=== PATIENT | male | born 1955 | race Caucasian/White ===

== ENCOUNTER 2017-11-26 14:08 | Outpatient (CLI) | payer BC | END 2017-11-26 14:09 | disposition home or self-care (01) | LOC: LAB.F 14:08 | PROVIDERS: ATTEND Family Medicine | DX: R73.01 Impaired fasting glucose (principal); I10 Essential (primary) hypertension; E03.9 Hypothyroidism, unspecified; E87.6 Hypokalemia; Z12.5 Encounter for screening for malignant neoplasm of prostate ==

== ENCOUNTER 2017-11-27 08:00 | Outpatient (CLI) | payer BC ==
[2017-11-27 17:35] LABS: BILIRUBIN,URINE NEGATIVE (NEGATIVE); GLUCOSE, URINE (UA) NEGATIVE (NEGATIVE); KETONES,URINE (UA) NEGATIVE (NEGATIVE); LEUKOCYTE ESTERASE, URINE NEGATIVE (NEGATIVE); NITRITE,URINE NEGATIVE (NEGATIVE); OCCULT BLOOD,URINE NEGATIVE (NEGATIVE); PROTEIN,URINE NEGATIVE (NEGATIVE); UROBILINOGEN,URINE 0.2 (NORMAL) E.U./dL (NORMAL)
[2017-11-27 17:44] LABS: BACTERIA,URINE Rare /HPF (None Seen); CLARITY,URINE CLEAR (CLEAR); RBC,URINE 0-5 /HPF (0-5); SQUAMOUS EPITHELIAL CELL,UR RARE Squamous (<= Few)
[2017-11-27 18:08] LABS: ALBUMIN 4.2 g/dL (3.2-5.5); ALBUMIN/GLOBULIN RATIO 1.4 (1.0-2.2); ALKALINE PHOSPHATASE 45 IU/L (42-121); ALT ALANINE AMINOTRANSFERASE 29 IU/L (10-60); AST ASPARTATE AMINOTRANSFERASE 26 IU/L (10-42); BUN - BLOOD UREA NITROGEN 23 mg/dL (6-20); CALCIUM 9.4 mg/dL (8.5-10.3); CARBON DIOXIDE - CO2 22 mmol/L (21-32); CHLORIDE 102 mmol/L (101-111); CHOL/HDL RATIO 4.5 (<5.0); CHOLESTEROL 180 mg/dL; GFR - MDRD 75 (>89); GLUCOSE 105 mg/dL (70-100); HDL CHOLESTEROL 40 mg/dL; LDL CHOLESTEROL,CALCULATED 127 mg/dL; LDL/HDL RATIO 3.2 (<3.6); SODIUM 136 mmol/L (135-145); TOTAL PROTEIN 7.2 g/dL (6.7-8.2); VLDL CHOLESTEROL 13 mg/dL
[2017-11-27 18:13] LABS: HB2 TOTAL 18.5 g/dL; HEMOGLOBIN A1C 0.68 g/dL; HEMOGLOBIN A1C % 5.5 % (4.6-6.2)
== END 2017-11-27 08:01 | disposition home or self-care (01) ==
LOC: LAB.F 08:00
PROVIDERS: ATTEND Family Medicine
DX: R73.01 Impaired fasting glucose (principal); I10 Essential (primary) hypertension; E03.9 Hypothyroidism, unspecified; E87.6 Hypokalemia; Z12.5 Encounter for screening for malignant neoplasm of prostate
CPT/HCPCS: 36415; 80053; 80061; 81001; 83036; 83721; 84153

== ENCOUNTER 2017-12-10 07:43 | Day surgery (SDC) | payer BC ==
[2017-12-10] MEDS ORDERED: LACTATED RINGERS 1,000 ML IV ONE (07:51)
[2017-12-10] MEDS ORDERED: MIDAZOLAM 2 MG/2 ML VIAL IVP ONE (09:32)
[2017-12-10] MEDS ORDERED: fentaNYL 100 MCG/2 ML VIAL IVP ONE (09:32)
[2017-12-10 10:03] VITALS: BP 136/82
== END 2017-12-10 07:44 | disposition home or self-care (01) ==
LOC: SDS 07:43
PROVIDERS: ATTEND Surgery
PROC: 0DJD8ZZ Inspection of Lower Intestinal Tract, Via Natural or Artificial Opening Endoscopic (ICD-10-PCS; principal; 2017-12-10 09:00)
DX: Z12.11 Encounter for screening for malignant neoplasm of colon (principal); Z86.010 Personal history of colon polyps; I10 Essential (primary) hypertension; Z79.82 Long term (current) use of aspirin
CPT/HCPCS: 45378; J7120

== ENCOUNTER 2018-02-28 08:04 | Observation (INO) | payer BC ==
[~2018-02-28 08:04] MED LIST: BUPIVACAINE 0.5%-EPI 1:200000 PF 30 ML VIAL ONE
[2018-02-28] MEDS ORDERED: LACTATED RINGERS 1,000 ML IV ONE ×2 (08:31→12:33)
[2018-02-28] MEDS ORDERED: ceFAZolin 2 GM/50 ML 2 GM/50 ML BAG IV ONE (08:49)
[2018-02-28] MEDS ORDERED: BUPIVACAINE 0.5%-EPI 1:200000 PF 30 ML VIAL SUBQ ONE ×2 (11:13)
[2018-02-28] MEDS ORDERED: MIDAZOLAM 2 MG/2 ML VIAL IVP ONE (11:19)
[2018-02-28] MEDS ORDERED: PROPOFOL 200 MG/20 ML VIAL IVP ONE (11:19)
[2018-02-28] MEDS ORDERED: DEXAMETHASONE 4 MG/ML VIAL IVP ONE (11:19)
[2018-02-28] MEDS ORDERED: ONDANSETRON 4 MG/2 ML VIAL IVP ONE (11:19)
[2018-02-28] MEDS ORDERED: ROCURONIUM 50 MG/5 ML VIAL IVP ONE (11:19)
[2018-02-28] MEDS ORDERED: KETOROLAC 30 MG/ML VIAL IVP ONE (11:19)
[2018-02-28] MEDS ORDERED: fentaNYL 250 MCG/5 ML VIAL IVP ONE (11:19)
[2018-02-28] MEDS ORDERED: HYDROmorphone 0.5 MG/0.5 ML SYRINGE IVP PRN (14:26)
[2018-02-28] MEDS ORDERED: ONDANSETRON 4 MG/2 ML VIAL IVP PRN (14:26)
[2018-02-28] MEDS ORDERED: SODIUM CHLORIDE FLUSH 0.9% 10 ML SYRINGE IVP PRN (14:26)
[2018-02-28] MEDS ORDERED: HYDROcod/ACETAM 5/325 MG TABLET PO PRN (15:42)
[2018-02-28] MEDS: SODIUM CHLORIDE 0.9% 1,000 ML IV SCH (16:11)
[2018-02-28] MEDS: ACETAMINOPHEN 1,000 MG/100 ML 100 ML IV SCH ×2 (16:12→22:25)
[2018-02-28] MEDS: SODIUM CHLORIDE FLUSH 0.9% 10 ML SYRINGE IVP SCH (16:18)
[2018-02-28] MEDS: KETOROLAC 30 MG/ML VIAL IVP PRN (17:11)
[2018-02-28] MEDS ORDERED: HYDROmorphone 1 MG/ML CARPUJECT IVP PRN (18:03)
[2018-02-28] MEDS: FAMOTIDINE 20 MG/50 ML 50 ML IV SCH (20:26)
[2018-03-01] MEDS: SODIUM CHLORIDE 0.9% 1,000 ML IV SCH (03:22)
[2018-03-01] MEDS: ACETAMINOPHEN 1,000 MG/100 ML 100 ML IV SCH (03:25)
[2018-03-01] MEDS: SODIUM CHLORIDE FLUSH 0.9% 10 ML SYRINGE IVP SCH ×2 (03:43→08:48)
[2018-03-01] MEDS: KETOROLAC 30 MG/ML VIAL IVP PRN (03:55)
[2018-03-01] MEDS: FAMOTIDINE 20 MG/50 ML 50 ML IV SCH (08:46)
[2018-03-01] MEDS ORDERED: LISINOPRIL 5 MG TABLET PO SCH (09:00)
--- NOTE | 2018-03-01 10:24 | Discharge Plan ---
Discharge Plan Disposition: Home, Self Care Condition: Good Prescriptions: HYDROcod/ACETAM 325 [[place] 5325] 1 - 2 tab PO Q4HR PRN #30 tablet PRN Reason: Pain Diet: Regular Activity Restrictions: no lifting over 15 lbs Shower Restrictions: No Driving Restrictions: Yes (No while using narcotic pain medication) Weight Bearing: Full Weight Additional Instructions or Follow Up instructions: Abdominal binder when up No Smoking: If you smoke, Please STOP! Call for help. Follow-up with: Elpidio Son MD [Primary Care Provider] - Bartolome Montes MD [Provider Admit Priv/Credential] - 2 Weeks
--- NOTE | 2018-03-07 01:45 | PROVIDER PROGRESS NOTE ---
Subjective - General Admit Date: 02/28/18 - Review of Systems Gastrointestinal: positive: Abdominal pain (Abdominal pain now improved with Buckeye working adequately. No c/o nausea or vomiting.), Flatus Objective - Physical Exam Respiratory: positive: No respiratory distress Cardiovascular: positive: Regular rate & rhythm Abdomen: positive: Other (incision intact covered with dermabond. No signficiant abdominal tenderness) Impression/Plan - Problem List Problem List: s/p laparoscopic repair of ventral incisional hernia POD#1. Doing much better today. Overnight needed IV pain medication with oral Buckeye now providing adequate pain relief. He is now walking very well without too much abdominal pain. He is tolerating liquids. -Abdominal binder -advance diet -D/c Home
--- NOTE | 2018-03-07 06:58 | OPERATIVE REPORT ---
DATE OF SERVICE: 02/28/2018 Physician: Bartolome Montes MD PREOPERATIVE DIAGNOSIS: Ventral incisional hernia. POSTOPERATIVE DIAGNOSIS: Ventral incisional hernia. OPERATION PERFORMED: Laparoscopic repair of ventral incisional hernia. OPERATING SURGEON: Bartolome Montes MD ANESTHESIA: General. INDICATIONS FOR SURGERY: Patient is a 62-year-old male who underwent a laparoscopic right hemicolectomy for dysplastic polyp approximately 2.5 years ago. He had noticed swelling being present in the area of the previous incision recently. On physical exam, he has a reducible ventral incisional hernia. FINDINGS AT SURGERY: Patient had a ventral incisional hernia in the midline of his abdominal wall. This hernia measured 10 x 11 cm. A 20 x 25 piece of Parietex mesh was placed intra-abdominally after trimming it to appropriate size. The midline abdominal fascia had been approximated using running 0 Prolene sutures. The mesh had covered the preclosure fascial defect by at least 5 cm circumferentially around the edge. PROCEDURE: After informed consent was obtained, the patient was taken to the operating room, placed in supine position. General endotracheal anesthesia was administered. The patient's abdomen was then prepped and draped in usual sterile fashion. An incision was then made in the left upper quadrant. A 5 mm Optiview trocar was then inserted through the incision, through the fascia, and into the abdominal cavity under direct vision. The abdomen was then insufflated. Looking inside, no injuries were noted. A second 5 mm port was placed in the left lower quadrant and a 12 mm port placed through the most lateral portion of the left abdominal wall. Attention turned to the hernia defect. Measuring the fascial defect, it was approximately 10 x 11 cm. The wound was then approximated in the midline using a running #0 Prolene suture after introducing it into the abdominal cavity. A third 5 mm port was placed through the right lateral wall. The mesh had been trimmed to appropriate size to have at least 5 cm overlap over the prefascial wound closure having actually a greater than 5 cm overlap. Stay sutures in all 4 corners were then placed through the mesh using 0 PDS sutures. A marking stitch in the center of the mesh had also been placed using 3-0 Vicryl suture to ensure orientation of the mesh once it was placed intra-abdominally. The mesh was then rolled up and placed intra-abdominally. A small incision was then made in the center of the hernia defect and a suture passer was placed through this incision, through the hernia sac, and into abdominal cavity and under direct vision. The 3-0 Vicryl suture placed in the center of the mesh was then grasped and lifted up through the wound. Next, 4-quadrant incisions were then made in the skin at the edges of the mesh where the 0 Prolene sutures would be pulled through the abdominal wall. Using the suture passer, the sutures were then grasped and lifted through the abdominal wall and up through the skin. These sutures were then tied and buried down in the subcutaneous tissue. This pulled the mesh against the anterior abdominal wall. A double crown suture technique using SecureStrap was then done to secure the mesh further to the anterior abdominal wall. The 12 mm port in the left flank was then closed using 0 Vicryl suture using the suture passer to ensure adequate closure of the fascia. The rest of the 5 mm ports were then removed, and no bleeding was noted at the port sites, with the abdomen then being desufflated. The skin incisions were closed using 4-0 Monocryl subcuticular stitches. Dermabond was then applied. The patient was then awakened, extubated, and taken from the operating room in stable condition. SPECIMENS: None. COMPLICATIONS: None. CONDITION OF THE PATIENT AT THE END OF THE PROCEDURE: Stable. CLASSIFICATION WOUND: Clean. ESTIMATED BLOOD LOSS: Less than 25 mL. TD: 03/07/2018 01:48 MTDD
== END 2018-03-01 11:45 | disposition home or self-care (01) ==
LOC: SDS 08:04 → OBS 14:26 → SDS 03-01 11:45 → OBS 03-01 11:45
PROVIDERS: ADMIT Surgery; ATTEND Surgery
PROC: 0WUF4JZ Supplement Abdominal Wall with Synthetic Substitute, Percutaneous Endoscopic Approach (ICD-10-PCS; principal; 2018-02-28 09:15)
DX: K43.2 Incisional hernia without obstruction or gangrene (principal); I10 Essential (primary) hypertension; Z90.49 Acquired absence of other specified parts of digestive tract; Z86.010 Personal history of colon polyps; Z79.82 Long term (current) use of aspirin; Z87.891 Personal history of nicotine dependence
CPT/HCPCS: 49654; A9270; J0131; J0690; J3010; J7120

== ENCOUNTER 2018-06-09 12:09 | Outpatient (CLI) | payer MEDICARE, OTHER ==
[2018-06-09 18:09] LABS: HB2 TOTAL 18.4 g/dL; HEMOGLOBIN A1C 0.71 g/dL; HEMOGLOBIN A1C % 5.7 % (4.6-6.2)
[2018-06-09 18:15] LABS: ALBUMIN 4.2 g/dL (3.2-5.5); ALBUMIN/GLOBULIN RATIO 1.3 (1.0-2.2); ALKALINE PHOSPHATASE 62 IU/L (42-121); ALT ALANINE AMINOTRANSFERASE 37 IU/L (10-60); AST ASPARTATE AMINOTRANSFERASE 35 IU/L (10-42); BILIRUBIN,TOTAL 1.3 mg/dL (0.2-1.0); BUN - BLOOD UREA NITROGEN 27 mg/dL (6-20); CALCIUM 9.2 mg/dL (8.5-10.3); CARBON DIOXIDE - CO2 24 mmol/L (21-32); CHLORIDE 109 mmol/L (101-111); CHOL/HDL RATIO 4.8 (<5.0); CHOLESTEROL 205 mg/dL; CREATININE 0.9 mg/dL (0.6-1.2); GFR - MDRD 85 (>89); GLUCOSE 109 mg/dL (70-100); HDL CHOLESTEROL 43 mg/dL; LDL CHOLESTEROL,CALCULATED 147 mg/dL; LDL/HDL RATIO 3.4 (<3.6); SODIUM 141 mmol/L (135-145); TOTAL PROTEIN 7.5 g/dL (6.7-8.2); VLDL CHOLESTEROL 15 mg/dL
== END 2018-06-09 12:10 ==
LOC: LAB.S 12:09
PROVIDERS: ATTEND Family Medicine
DX: R73.01 Impaired fasting glucose (principal); I10 Essential (primary) hypertension; E03.9 Hypothyroidism, unspecified; E87.6 Hypokalemia
CPT/HCPCS: 36415; 80053; 80061; 83036; 83721

== ENCOUNTER 2019-05-01 12:51 | Outpatient (CLI) | payer MEDICARE, OTHER ==
[2019-05-01 18:55] LABS: ALBUMIN 3.8 g/dL (3.2-5.5); ALKALINE PHOSPHATASE 54 IU/L (42-121); ALT ALANINE AMINOTRANSFERASE 32 IU/L (10-60); AST ASPARTATE AMINOTRANSFERASE 25 IU/L (10-42); BUN - BLOOD UREA NITROGEN 29 mg/dL (6-20); CALCIUM 9.3 mg/dL (8.5-10.3); CARBON DIOXIDE - CO2 21 mmol/L (21-32); CHLORIDE 108 mmol/L (101-111); CHOL/HDL RATIO 4.7 (<5.0); CHOLESTEROL 191 mg/dL; CREATININE 0.8 mg/dL (0.6-1.2); GFR - MDRD 97 (>89); GLUCOSE 112 mg/dL (70-100); HDL CHOLESTEROL 41 mg/dL; LDL CHOLESTEROL,CALCULATED 137 mg/dL; LDL/HDL RATIO 3.3 (<3.6); SODIUM 142 mmol/L (135-145); TOTAL PROTEIN 7.8 g/dL (6.7-8.2); VLDL CHOLESTEROL 13 mg/dL
[2019-05-01 20:03] LABS: HEMOGLOBIN A1C 0.63 g/dL; HEMOGLOBIN A1C % 5.5 % (4.6-6.2)
== END 2019-05-01 12:52 | disposition home or self-care (01) ==
LOC: LAB.S 12:51
PROVIDERS: ATTEND Internal Medicine
DX: I10 Essential (primary) hypertension (principal); R73.01 Impaired fasting glucose; Z12.5 Encounter for screening for malignant neoplasm of prostate
CPT/HCPCS: 36415; 80053; 80061; 83036; G0103; 83721; 84153

== ENCOUNTER 2020-06-17 11:23 | Outpatient (CLI) | payer MEDICARE, OTHER ==
--- NOTE | 2020-06-17 16:00 | XRAY Report ---
PROCEDURE: Hip w/Pelvis 1V RT INDICATIONS: PAIN IN RIGHT HIP TECHNIQUE: AP pelvis with lateral view(s) of the bilateral hip(s). COMPARISON: None. FINDINGS: Bones: No fractures or dislocations. Prior right total hip arthroplasty with mild to moderate adjac ent heterotopic ossification in the soft tissues lateral to the hip joint. Note is made of a radioluc ency measuring 1.5 cm in transverse dimension and approximately 1 cm craniocaudad above the lateral t hird of the acetabular arthroplastic component Pelvic ring appears intact. No suspicious bony lesion s. Soft tissues: The visualized bowel gas pattern is normal. No suspicious soft tissue calcifications. IMPRESSION: Unexpected finding of a indistinctly marginated radiolucency in the osseous aspect of th e acetabular recess above the lateral third of the right hip arthroplasty acetabular component. Addit ional note is made of a region of heterotopic ossification, triangular, lateral to the femoral head c omponent of the arthroplasty. If infection is clinically suspected 3 phase bone scan may be warranted through this area. Reviewed by: Oswaldo Dukes MD on 06/17/2020 3:59 PM PDT Approved by: Oswaldo Dukes MD on 06/17/2020 3:59 PM PDT Station ID: [id number]
[2020-06-17 16:03] LABS: ALBUMIN 2.9 g/dL (3.2-5.5); ALKALINE PHOSPHATASE 63 IU/L (42-121); ALT ALANINE AMINOTRANSFERASE 37 IU/L (10-60); AST ASPARTATE AMINOTRANSFERASE 26 IU/L (10-42); BILIRUBIN,TOTAL 0.8 mg/dL (0.2-1.0); BUN - BLOOD UREA NITROGEN 29 mg/dL (6-20); CALCIUM 9.7 mg/dL (8.5-10.3); CARBON DIOXIDE - CO2 25 mmol/L (21-32); CHLORIDE 100 mmol/L (101-111); CHOL/HDL RATIO 4.1 (<5.0); CHOLESTEROL 120 mg/dL; GLUCOSE 119 mg/dL (70-100); HDL CHOLESTEROL 29 mg/dL; SODIUM 130 mmol/L (135-145)
[2020-06-17 16:36] LABS: TOTAL PROTEIN 11.5 g/dL (6.7-8.2)
[2020-06-17 16:37] LABS: ALBUMIN/GLOBULIN RATIO 0.3 (1.0-2.2); LDL CHOLESTEROL,CALCULATED 82 mg/dL; LDL/HDL RATIO 2.8 (<3.6); VLDL CHOLESTEROL 9 mg/dL
== END 2020-06-17 11:24 | disposition home or self-care (01) ==
LOC: LAB.S 11:23 → DI.S 11:24
PROVIDERS: ATTEND Internal Medicine
DX: R93.6 Abnormal findings on diagnostic imaging of limbs (principal); I10 Essential (primary) hypertension; R73.01 Impaired fasting glucose; Z12.5 Encounter for screening for malignant neoplasm of prostate
CPT/HCPCS: 36415; 73501; 80053; 80061; 83036; G0103; 83721; 84153

== ENCOUNTER 2020-06-29 11:34 | Outpatient (CLI) | payer MEDICARE, OTHER ==
[2020-06-29 16:27] LABS: CALCIUM 10.1 mg/dL (8.5-10.3)
[2020-07-01 14:26] LABS: ABNORMAL PROTEIN BAND 1 6.4 g/dL (NONE DETECTED); ALBUMIN 3.9 g/dL (3.8-4.8); ALPHA 1 GLOBULIN 0.3 g/dL (0.2-0.3); ALPHA 2 GLOBULIN 0.7 g/dL (0.5-0.9); BETA 1 GLOBULIN 0.4 g/dL (0.4-0.6); BETA 2 GLOBULIN 0.3 g/dL (0.2-0.5); GAMMA GLOBULIN 6.8 g/dL (0.8-1.7)
== END 2020-06-29 11:35 | disposition home or self-care (01) ==
LOC: LAB.S 11:34
PROVIDERS: ATTEND Internal Medicine
DX: Z00.01 Encounter for general adult medical examination with abnormal findings (principal)
CPT/HCPCS: 36415; 80048; 84155; 84165; 84300; 85651

== ENCOUNTER 2020-08-17 20:25 | Outpatient (CLI) | payer MEDICARE, OTHER | END 2020-08-17 20:26 | disposition critical access hospital (66) | LOC: EMS 20:25 | PROVIDERS: ATTEND Surgery | DX: R55 Syncope and collapse (principal) | CPT/HCPCS: A0425; A0427 ==

== ENCOUNTER 2020-08-17 20:58 | Inpatient (IN) | payer MEDICARE, OTHER ==
[2020-08-17] MEDS ORDERED: METOPROLOL 5 MG/5 ML VIAL IVP STA (21:25)
[2020-08-17 21:27] LABS: BASOPHILS % (AUTO) 0.4 %; EOSINOPHILS # (AUTO) 0.1 10^3/uL (0.0-0.7); EOSINOPHILS % (AUTO) 1.1 %; HGB - HEMOGLOBIN 10.7 g/dL (14.0-18.0); LYMPHOCYTES # (AUTO) 1.2 10^3/uL (1.5-3.5); LYMPHOCYTES % (AUTO) 22.8 %; MEAN CORPUSCULAR HEMOGLOBIN 34.5 pg (27.0-31.0); MEAN CORPUSCULAR HGB CONC 33.4 g/dL (32.0-36.0); MEAN CORPUSCULAR VOLUME 103.2 fL (80.0-94.0); MEAN PLATELET VOLUME 9.3 fL (7.4-11.4); MONOCYTES # (AUTO) 0.6 10^3/uL (0.0-1.0); MONOCYTES % (AUTO) 11.8 %; NEUTROPHILS # (AUTO) 3.5 10^3/uL (1.5-6.6); NEUTROPHILS % (AUTO) 63.5 %; PLT - PLATELET COUNT 169 10^3/uL (130-450); RED CELL DISTRIBUTION WIDTH 14.5 % (12.0-15.0); WHITE BLOOD COUNT 5.4 x10^3/uL (4.8-10.8)
[2020-08-17] MEDS ORDERED: HYDROmorphone 1 MG/ML CARPUJECT IVP STA (21:29)
[2020-08-17] MEDS ORDERED: KETOROLAC 15 MG/ML VIAL IVP STA (21:29)
--- NOTE | 2020-08-17 21:33 | ED Physician Documentation ---
PD HPI SYNCOPE - Stated complaint Stated Complaint: NEAR SYNCOPE - Chief complaint Chief Complaint: Cardiac - History obtained from History obtained from: Patient, Family, EMS - History of Present Illness Witnessed: Witnessed Timing - onset: How many hours ago (abrupt onset of feeling general weakness, feeling heart fast, and near syncope. 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 EMS called and noted the pt in SVT rate 150 with wide complex. It converted to sinus tachy on its own. BP was good throughout. Pt feeling better once heart rate slowed.) Preceding symptoms: Palpitations, Abdominal pain. No: Chest pain Contributing factors: Other (He has had 1 week of progressive leg edema as well as shortness of breath and dyspnea on exertion. He thought it was related to his myeloma. No history of CHF/heart disease.). No: Recent med change, Decreased PO intake Injury occurred: No: Fell, Head injury Similar symptoms before: Has not had sx before Recently seen: Clinic (Hemo/Onc with Dx of multiple myeloma.) Review of Systems Constitutional: reports: Fatigue. denies: Fever, Chills Nose: denies: Rhinorrhea / runny nose, Congestion Throat: denies: Sore throat Cardiac: reports: Pedal edema (for 7-10 days gradual onset). denies: Palpitations Respiratory: reports: Dyspnea. denies: Cough, Wheezing GI: reports: Abdominal Pain, Constipation (since Saturday (4 days)). denies: Nausea, Vomiting : denies: Dysuria, Frequency Skin: denies: Rash Musculoskeletal: reports: Back pain (for couple months, Dx with multiple myeloma confirmed last week; getting chemo at [facility] starting next week.) Neurologic: reports: Generalized weakness (for the past week, worsening, and abrupt worse this evening with near syncope.). denies: Altered mental status, Headache Psychiatric: reports: Anxiety. denies: Insomnia Endocrine: reports: Weight loss Immunocompromised: denies: Immunocompromised PD PAST MEDICAL HISTORY - Past Medical History Past Medical History: Yes Cardiovascular: Hypertension Respiratory: None Endocrine/Autoimmune: None GI: Colon polyps : None HEENT: None Psych: None Musculoskeletal: None Derm: None Other Past Medical History: multiple myeloma - Past Surgical History Past Surgical History: Yes General: Bowel surgery, Colonoscopy, Other Ortho: Hip replacement - Present Medications Home Medications: Ambulatory Orders Medication Instructions Recorded Confirmed lisinopriL [Zestril] 10 mg PO DAILY 11/26/13 08/12/20 Flaxseed Oil 1,000 mg PO DAILY 12/24/17 08/12/20 Glucosamine HCl 3 tab PO DAILY 12/24/17 08/12/20 Multivitamin [Multiple Vitamins] 2 each PO DAILY 12/24/17 08/12/20 Niacin 500 mg PO DAILY 12/24/17 08/12/20 Eleele-3/Dha/Epa/Fish Oil [Fish Oil 1,360 mg PO DAILY 12/24/17 08/12/20 Conc 1,000 mg Softgel] Prosta Fit 3 cap PO DAILY 07/15/20 08/12/20 Acyclovir [Zovirax] 400 mg PO BID 08/12/20 08/12/20 Morphine Sulfate [Ms Contin] 15 mg ORAL BID 08/12/20 08/12/20 Ondansetron [Ondansetron Odt] 8 mg PO Q8HR PRN 08/12/20 08/12/20 dexAMETHasone [Dexamethasone] 4 mg PO ONCE 08/12/20 08/12/20 oxyCODONE [Roxicodone] 5 mg PO Q4-6H PRN 08/12/20 08/12/20 - Allergies Allergies/Adverse Reactions: Allergies Allergy/AdvReac Type Severity Reaction Status Date / Time morphine AdvReac Anxiety Verified 08/17/20 21:09 - Social History Does the pt smoke?: No Smoking Status: Never smoker Does the pt drink ETOH?: Yes Does the pt have substance abuse?: No - Immunizations Immunizations are current?: No Immunizations: TDAP >10years/unknown PD ED PE NORMAL - Vitals Vital signs reviewed: Yes - General General: Alert and oriented X 3, Well developed/nourished - Neck Neck: Supple, no meningeal sign, No adenopathy, Other (mild JVD at 45 degrees) - Cardiac Cardiac: No murmur. No: RRR (tachycardic) - Respiratory Respiratory: No: Clear bilaterally (Bilateral crackles a third of the way up on both sides. No accessory muscle use.) - Abdomen Abdomen: Soft, Non tender, Non distended. No: Normal bowel sounds (decreased) - Male Male : Deferred - Rectal Rectal: Deferred - Back Back: No CVA TTP - Derm Derm: Normal color, Warm and dry - Neuro Neuro: Alert and oriented X 3, No motor deficit Eye Opening: Spontaneous Motor: Obeys Commands Verbal: Oriented GCS Score: 15 - Psych Psych: No: Normal affect (somewhat anxious) Results - Vitals Vitals: Vital Signs - 24 hr 08/17/20 08/17/20 08/17/20 21:05 21:10 21:16 Temperature 37.1 C 37.1 C 37.1 C Heart Rate 106 H 106 H 105 H Respiratory 18 18 18 Rate Blood Pressure 188/116 H 118/115 H 182/91 H O2 Saturation 95 97 97 08/17/20 08/17/20 08/17/20 21:41 21:42 21:43 Temperature 37.1 C 37.1 C 37.1 C Heart Rate 108 H 89 86 Respiratory 16 16 15 Rate Blood Pressure 188/92 H 185/88 H 157/84 H O2 Saturation 95 94 100 08/17/20 08/17/20 08/17/20 21:49 21:55 22:03 Temperature 37.1 C 37.1 C 37.1 C Heart Rate 86 89 87 Respiratory 12 15 15 Rate Blood Pressure 147/85 H 149/82 H 131/71 H O2 Saturation 97 94 95 08/17/20 08/17/20 22:20 22:30 Temperature 37.1 C 37.1 C Heart Rate 88 94 Respiratory 20 15 Rate Blood Pressure 161/84 H 160/82 H O2 Saturation 96 97 Oxygen O2 Source Room air - EKG (time done) 21:00 Rate: Rate (enter#) (106) Rhythm: Sinus tachycardia [place]: Normal Intervals: RBBB Ischemia: ST depression (likely c/w BBB), Non specific changes. No: ST elevation c/w ischemia - Labs Labs: Laboratory Tests 08/17/20 08/17/20 08/17/20 21:20 21:20 21:20 WBC 5.4 RBC 3.10 L Hgb 10.7 L Hct 32.0 L MCV 103.2 H MCH 34.5 H MCHC 33.4 RDW 14.5 Plt Count 169 MPV 9.3 Neut # (Auto) 3.5 Lymph # (Auto) 1.2 L [place] # (Auto) 0.6 Eos # (Auto) 0.1 Baso # (Auto) 0.0 Absolute Nucleated RBC 0.00 Nucleated RBC % 0.0 Sodium 136 Potassium 2.9 L Chloride 102 Carbon Dioxide 26 Anion Gap 8.0 BUN 29 H Creatinine 1.2 Estimated GFR (MDRD) 60 L Glucose 121 H Calcium 10.7 H Phosphorus Magnesium Total Bilirubin 0.9 AST 22 ALT 29 Alkaline Phosphatase 69 Troponin I High Sens 19.6 B-Natriuretic Peptide Total Protein 10.7 H Albumin 2.3 L Globulin 8.4 H Albumin/Globulin Ratio 0.3 L Lipase 24 08/17/20 08/17/20 21:20 21:20 WBC RBC Hgb Hct MCV MCH MCHC RDW Plt Count MPV Neut # (Auto) Lymph # (Auto) [place] # (Auto) Eos # (Auto) Baso # (Auto) Absolute Nucleated RBC Nucleated RBC % Sodium Potassium Chloride Carbon Dioxide Anion Gap BUN Creatinine Estimated GFR (MDRD) Glucose Calcium Phosphorus 2.6 Magnesium 1.9 Total Bilirubin AST ALT Alkaline Phosphatase Troponin I High Sens B-Natriuretic Peptide 166 H Total Protein Albumin Globulin Albumin/Globulin Ratio Lipase - Rads (name of study) chest xray Radiology: Prelim report reviewed (Diffuse vascular congestion consistent with CHF), See rad report PD MEDICAL DECISION MAKING - ED course Complexity details: reviewed results (His chest x-ray is more concordant with his exam of fine wet sounds. BNP is not much elevated but I think is not reliable as much as clinical.), considered differential (He has been having exertional dyspnea as well as leg edema. There are some crackles heard at the bases. He does seem to have new CHF. Unclear whether rhythm related and concordant with the SVT/possible A. fib this evening or whether primarily cardiogenic with heart failure. An echo may be approp), d/w patient Departure - Departure Disposition: ED Place in Observation Clinical Impression: SVT (supraventricular tachycardia), Hypokalemia, Near syncope, New onset of congestive heart failure Dyspnea Qualifiers: Dyspnea type: dyspnea on exertion Qualified Code(s): R06.00 - Dyspnea, unspecified Condition: Stable Record reviewed to determine appropriate education?: Yes
[2020-08-17 21:38] LABS: ALBUMIN 2.3 g/dL (3.2-5.5); ALBUMIN/GLOBULIN RATIO 0.3 (1.0-2.2); BILIRUBIN,TOTAL 0.9 mg/dL (0.2-1.0); CALCIUM 10.7 mg/dL (8.5-10.3); CREATININE 1.2 mg/dL (0.6-1.2); TOTAL PROTEIN 10.7 g/dL (6.7-8.2)
[2020-08-17 21:46] LABS: MAGNESIUM 1.9 mg/dL (1.7-2.8); PHOSPHORUS 2.6 mg/dL (2.5-4.6)
[2020-08-17] MEDS ORDERED: POTASSIUM CHLORIDE 20 MEQ TABLET PO STA (21:51)
[2020-08-17] MEDS ORDERED: POTASSIUM CHLOR 10 MEQ/100 ML 10 MEQ/100 ML BAG IV ONE ×2 (21:51→22:47)
--- NOTE | 2020-08-17 22:01 | XRAY Report ---
PROCEDURE: Chest 1 View X-Ray INDICATIONS: chest pain TECHNIQUE: One view of the chest was acquired. COMPARISON: 04/30/2015 FINDINGS: Surgical changes and devices: None. Lungs and pleura: Diffuse interstitial prominence with patchy bibasilar opacities more pronounced on the right. No focal consolidations. No definite pleural effusion. No pneumothorax. Suggestion of mild vascular congestion. Mediastinum: Cardiomediastinal contours remain stable. Heart size is normal. Bones and chest wall: New lytic lesions noted throughout the right humerus with the largest partially imaged in the mid shaft of the right humerus. Remainder of the visualized osseous structures appear unremarkable. Overlying soft tissues appear unremarkable. IMPRESSION: 1. Diffuse interstitial prominence with patchy bibasilar opacities and suggestion of vascular congest ion. Findings may represent pulmonary edema/CHF. Infectious/inflammatory process not excluded if clin ically appropriate. No focal consolidations. 2. Incompletely imaged lucencies involving the right humerus. These are likely new compared to previo us chest radiograph dated 04/30/2015. Intraosseous lesion versus osseous metastatic disease not exclud ed. Clinical correlation recommended. Reviewed by: Marcos Bautista MD on 08/17/2020 10:00 PM PDT Approved by: Marcos Bautista MD on 08/17/2020 10:00 PM PDT Station ID: [id number]
[2020-08-17] MEDS ORDERED: FUROSEMIDE 20 MG/2 ML VIAL IVP STA (22:06)
[2020-08-17] MEDS ORDERED: ONDANSETRON ODT 4 MG TABLET TL PRN (22:45)
[2020-08-17] MEDS ORDERED: ONDANSETRON 4 MG/2 ML VIAL IVP PRN (22:45)
[2020-08-17] MEDS ORDERED: oxyCODONE 5 MG TABLET PO PRN (22:45)
--- NOTE | 2020-08-17 22:56 | HISTORY & PHYSICAL EXAMINATION ---
Chief Complaint - Chief Complaint Chief Complaint: near syncope History of Present Illness - Admitted From Admitted From:: home via EMS - History Obtained From Records Reviewed: [facility] History obtained from: Dr. lezama Exam Limitations: none - History of Present Illness HPI Comment/Other: 65-year-old white male who was recently diagnosed with multiple myeloma. He just had a confirmatory biopsy last week, and is to start therapy next week. He has diffuse joint pain, bone pain. Fatigue. Anorexia. He has been feeling increasing sylvia pain and inability to do ADLs in the last week. Denies chest pain, palpitations, but is having leg edema.He would lay down on the floor, elevate his legs, and go to sleep and the physician. When he would wake up, his legs would be skinny. But then when he stood up for too long the legs to get edematous again. When I press him about shortness of breath he states he really was not short of breath. He is just tired, and his legs and pelvis hurt so much from the bony erosions he cannot stand for too long. He has been spending many hours in a chair or laying down now for the last few months. He denies cough, fever, chills, chest congestion. The last time he stood up to do a project was in April. Today had sudden onset of palpitations, with lightheadedness and dizziness. When I explained to him that it was described that he almost passed out he denies it. He said at no time did he feel like he was losing his concentration or consciousness. He said that he just could not get off the toilet. No matter how hard he tried his legs would not support him. No chest pain. No diaphoresis. No jaw pain, left arm pain. And as such he came to the emergency room. Via EMS. When EMS arrived at the scene, he was in a wide complex tachycardia felt to be SVT. He said that he tried to get up off the toilet by himself, with him standing by, but all he did was lurch to one side, and not the toilet roll reyes off the wall. By the time they got him on the gurney he had already converted back to sinus on his own. In the emergency room he was evaluated by Dr. Lezama where heart rate was 86. Temperature was 37.1. Blood pressure 147/85. Respirations 12 and is 97% on r oom air. For the time is been in the emergency room he has been oxygenating adequately, and has been mildly hypertensive. His physical exam is crackles. But no respiratory distress. Chest x-ray does not show congestive heart failure. Potassium is 2.9. Troponin was normal. Calcium is elevated at 10.7. BNP is 166. EKG is unremarkable. The patient is now placed in observation for gentle diuresis, and echocardiogram in the morning. And telemetry. History - Past Medical History Cardiovascular: reports: Hypertension (Admission for uncontrolled hypertension after right hemicolectomy) Respiratory: reports: None Endocrine/Autoimmune: reports: None GI: reports: Colon polyps (Screening colonoscopy 12/04. Large colon polyp seen. Underwent right hemicolectomy December 30, 2013.) : reports: None HEENT: reports: None Psych: reports: None Musculoskeletal: reports: None Derm: reports: None MRSA Hx?: No Other Past Medical History: multiple myeloma: Diffuse musculoskeletal pain with sharp bony pain developed over the last few months. Was seen by his primary care provider and evaluation showed him to have a paraproteinemia. Final diagnosis is that of multiple myeloma. Initial consultation with oncology was July 15. Tentative date for starting therapy with bortezomib, lenalidomide, and dexamethasone is August 29. Zoledronic acid will be 4 mg monthly and he supposed to have seen a dentist. - Past Surgical History General: reports: Bowel surgery, Colonoscopy (11/2013 with resection 12/2013. Follow-up colonoscopy September 2014, November 2017.), Other (Inguinal hernia repair, incarcerated ventral hernia repair 02/2018) Ortho: reports: Hip replacement - Family & Social History Family History Comment/Other: Mom had leukemia And age 65. Dad of com plications of DM and heart disease in his 80s. 6 Siblings with 1 having prostate cancer and one having severe diabetes. No children Living arrangement: At home Living Situation: With spouse/s.o. Social History Notes: Former smoker who quit smoking 1983. Started in 1968 and smoked 1 pack/day. Alcohol use is 1-2 times a week. No recreational substance abuse since April 2013 Use of cannabis. In the 1960s and 1970s he tried cocaine, LSD, street methamphetamines, peyote. He never tried heroin. He said that drug really scared him. He was born in [facility]. [place] he joined [employer]. Was in the [employer] for 4 years. 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 Retired from [employer]. He had a girlfriend for many years. They have been together for decades. He her in June 2016. - Substance History Use: Uses substance without health or social issues: NONE Abuse: Recurrent use of substance despite neg consequences: NONE Dependence: Experiences withdrawal or developed tolerances: NONE - POLST Patient has POLST: No POLST Status: Full Code Meds/Allgy - Home Medications Home Medications: Ambulatory Orders Medication Instructions Recorded Confirmed lisinopriL [Zestril] 10 mg PO DAILY 11/26/13 08/17/20 Flaxseed Oil 1,000 mg PO DAILY 12/24/17 08/17/20 Glucosamine HCl 3 tab PO DAILY 12/24/17 08/17/20 Multivitamin [Multiple Vitamins] 2 each PO DAILY 12/24/17 08/17/20 Niacin 500 mg PO DAILY 12/24/17 08/17/20 [place]-3/Dha/Epa/Fish Oil [Fish Oil 1,360 mg PO DAILY 12/24/17 08/17/20 Conc 1,000 mg Softgel] Prosta Fit 3 cap PO DAILY 07/15/20 08/12/20 Acyclovir [Zovirax] 400 mg PO BID 08/12/20 08/17/20 Morphine Sulfate [Ms Contin] 15 mg ORAL BID 08/12/20 08/17/20 Ondansetron [Ondansetron Odt] 8 mg PO Q8HR PRN 08/12/20 08/17/20 dexAMETHasone [Dexamethasone] 4 mg PO ONCE 08/12/20 08/12/20 oxyCODONE [Roxicodone] 5 mg PO Q4-6H PRN 08/12/20 08/17/20 - Allergies Allergies/Adverse Reactions: Allergies Allergy/AdvReac Type Severity Reaction Status Date / Time morphine AdvReac Anxiety Verified 08/17/20 21:09 Review of Systems - Constitutional Constitutional: reports: Fatigue, Weakness, Poor appetite, Weight loss. denies: Fever, Chills, Malaise, Diaphoresis, Night sweats - Eyes Eyes: reports: Spots in vision (He has developed white spots as a ramona in the periphery of his vision when he stands up. It streaks to the sides. Central vision is maintained.). denies: Pain, Irritation, Amaurosis, Blurred vision - Ears, Nose & Throat Ears, Nose & Throat: denies: Ear pain, Hearing loss, Hearing aids, Vertigo, Nasal pain, Nasal discharge, Nasal congestion, Sore throat, Hoarseness - Cardiovascular Cariovascular: reports: Irregular heart rate, Palpitations, Edema, Lightheadedness, Decr. exercise tolerance. denies: Chest pain, Syncope, Exertional dyspnea - Respiratory Respiratory: denies: Cough, Sputum production, Wheezing, Snoring, Orthopnea, SOB at rest, SOB with exertion - Gastrointestinal Gastrointestinal: reports: Abdominal pain (Mild generalized epigastric discomfort when he was sitting on the toilet. That is resolved.), Constipation (For the last 4 to 5 days.). denies: Abdominal distention, Diarrhea, Rectal bleeding, Black stools, Bloody stools, Nausea, Vomiting - Genitourinary Genitourinary: reports: Frequency, Nocturia (Over the summer has been getting worse.). denies: Dysuria, Urgency, Hematuria, Incontinence - Musculoskeletal Musculoskeletal: reports: Stiffness, Other (The bones of his legs, pelvis, rib cage, and spine just hurt.) - Integumentary Integumentary: denies: Rash, Pruritis, Lesions, Dryness - Neurological Neurological: reports: General weakness, Dizziness. denies: Focal weakness, Headache, Memory problems, Pre-existing deficit - Psychiatric Psychiatric: denies: Depression, Anxiety, Suicidal, Hallucinations - Endocrine Endocrine: denies: Polyuria, Polydypsia, Polyphagia - Hematologic/Lymphatic Hematologic/Lymphatic: reports: Anemia. denies: Bruising, Petechiae Prior Level of Functionality: Up until April of this year he was completely independent with activities of daily living. 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 Last thing he was able to stand up and do was a dog house this summer in April. He has been spending more more time sitting down or laying down because of the diffuse bony pain. He does not use a cane or walker. This last week he has become so weak he could not get off the toilet. He would like to speak to social work about getting a list to do private duty hires. Exam - Vital Signs Reviewed Vital Signs: Yes Vital Signs: Vital Signs x48h Temp Pulse Resp BP Pulse Ox 08/17/20 22:52 37.0 C 88 15 143/80 H 95 08/17/20 22:30 37.1 C 94 15 160/82 H 97 08/17/20 22:20 37.1 C 88 20 161/84 H 96 08/17/20 22:03 37.1 C 87 15 131/71 H 95 08/17/20 21:55 37.1 C 89 15 149/82 H 94 08/17/20 21:49 37.1 C 86 12 147/85 H 97 08/17/20 21:43 37.1 C 86 15 157/84 H 100 08/17/20 21:42 37.1 C 89 16 185/88 H 94 08/17/20 21:41 37.1 C 108 H 16 188/92 H 95 08/17/20 21:16 37.1 C 105 H 18 182/91 H 97 08/17/20 21:10 37.1 C 106 H 18 118/115 H 97 08/17/20 21:05 37.1 C 106 H 18 188/116 H 95 - Physical Exam General Appearance: positive: No acute distress, Alert, Other (5 foot 7, 97 kg male with a deep zamora) Eyes Bilateral: positive: PERRL, EOMI ENT: positive: Pharynx nml, No signs of dehydration Neck: positive: No JVD. negative: Stiff neck Respiratory: positive: No respiratory distress. negative: Wheezes, Rales, Rhonchi Cardiovascular: positive: Regular rate & rhythm. negative: Systolic murmur, Gallop/S4, Friction rub Peripheral Pulses: positive: 1+ Abdomen: positive: Non-tender, No organomegaly, Nml bowel sounds, No distention Skin: positive: Warm, Dry Extremities: positive: Full ROM, Pedal edema (3+ right foot, 2+ right leg. 2+ left foot and leg Both feet have sausage toes). negative: Lynette's sign/cords Neurologic/Psychiatric: positive: Oriented x3, CN's nml (2-12). negative: Motor nml (Moderate generalized weakness that has improved unable to stand and weight-bear) Conclusion/Plan - Problem List (1) Near syncope Conclusion/Plan: In a gentleman who has a new diagnosis of hematologic malignancy, and new arrhythmia, and new congestive heart failure.He states that he really did not almost pass out. He just says that he could not get off the toilet. Plan: Observation status Treatment of the stated above problems (2) SVT (supraventricular tachycardia) Conclusion/Plan: In a patient with a malignancy. Supplement electrolytes, check magnesium, check echo. Make sure he is not having DVT with venous Dopplers. (3) New onset of congestive heart failure Conclusion/Plan: Seen on chest x-ray, mild complaints of shortness of breath. No MO. Having bursts of SVT. Plan: Gentle diuresis Review echocardiogram and depending on ejection fraction he may or may not need diuresis alone or diuresis with beta-umm and continued ENDER inhibitor. (4) Hypokalemia Conclusion/Plan: Supplemented in ER. Recheck level in the morning. (5) Multiple myeloma Conclusion/Plan: To start treatment August 29. Qualifiers: Multiple myeloma remission status: not in remission Qualified Code(s): C90.00 - Multiple myeloma not having achieved remission (6) HTN (hypertension) Conclusion/Plan: Check orthostatics because of near syncope. Resume lisinopril 10 mg daily. Depending on echocardiogram result, he may need a beta-umm as well. Qualifiers: Hypertension type: essential hypertension Qualified Code(s): I10 - Essential (primary) hypertension - Lab Results Lab results reviewed: Yes Fish Bones: 08/17/20 21:20 08/17/20 21:20 - Diagnostic Imaging Results Diagnostic Imaging Results: positive: Final report reviewed Diagnostic Imaging Results Comments: Chest x-ray with diffuse interstitial prominence with patchy bibasilar opacities and suggestive of vascular congestion. Incompletely imaged lucencies involving the right humerus. New compared to previous chest x-ray April 30, 2015. Intraosseous lesion versus osseous metastatic disease not excluded. - EKG Results EKG Interpreted Independently: No EKG Comparison: No prior EKG EKG Findings: Sinus tachycardia with a right bundle branch block. Core Measures - Anticipated LOS I expect patient to be DC'd or transferred within 96 hours.: Yes - DVT/VTE - Prophylaxis VTE/DVT Device ordered at admit?: Yes
--- NOTE | 2020-08-18 02:24 | ADVANCE CARE PLANNING NOTE ---
Advance Care Planning - Planning Encounter Date: 08/18/20 Time: 01:25 Purpose: Establish goals of care and resuscitation status Parties in Attendance: Hospitalist and patient Decisional Capacity of the Patient: Alert, oriented, good memory with a lucid historical narrative - Diagnosis for Encounter (1) Multiple myeloma Qualifiers: Multiple myeloma remission status: not in remission Qualified Code(s): C90.00 - Multiple myeloma not having achieved remission - Encounter Subjective/Patient's Story: The patient is a pleasant 65-year-old male from [facility]. [place]. He has 6 siblings in [place]. Both parents are . He left [place] after he joined the [employer] and was stationed in [place]. He left it so much he never left. From the [employer] he went into [employer], was laid off for 4 years and then back at [employer]. 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 He has been in the same relationship with the same partner for a very long time now. They made it legal in June 2016. They have no children. Because he is a "tool kelby" he loves to fix things. That is what he left to do more than anything in life besides being outdoors. He and his recently bought a house. The first time they have her own house in January 2020. He is "honey do list" became quadruple the list they had when they were renting. That is when he first realized something was wrong. By March or April he was developing such terrible leg pain in his bones that he went to see his physician. A paraprotein area in his urine was identified as multiple myeloma by April. He was seen by oncology in June. He is now due for his first therapy August 31. He is lost a lot of ground between March and now. He is developed such pain that he spends most of his time sitting, or lying down. The last time he did anything that he enjoyed doing was in April when he built a dog house. But standing on his feet is just too painful on the long bones of his legs, and the pelvis. In the last week he has developed pedal edema that goes away if he lays on his back and raises his feet. He has been getting weaker and weaker and everything takes so much more effort now. When trying to get off the toilet today, his legs would not support him. He was brought here with the idea that he had near syncope but he is adamant that he did not have near syncope. He just could not get off the toilet. And he almost fell down. He has a deep face in Jerald Lito. He states that he does not know what the answers are, and he does not know what Lito has and plan for him, and that he does need to know that. He will accept what ever happens to him. He starting to realize that the possibility of is much sooner than anticipated. While he does not want to , he is willing to accept that event if that is his time. If he needed to be resuscitated with CPR or intubation he would like that done. But he also recognizes that if he were to be resuscitated but that he was still significantly disabled, to let him go. He has not really discussed this with his . He feels that she is taking this illness much harder than he is. He is afraid that it will get to the point where he is status post resuscitation, intubated, in an ICU with pressors and she will let them go. He says he would not want resuscitation to go that far. Today was also a wake-up call with regards to need for help. His cannot help him get up if he falls. He feels like they do have the finances to hire somebody short-term to help him until he can get therapy. He is hoping that the therapy for the multiple myeloma will took away some of his bony pain. He is on long-acting morphine twice a day. He is asking us to make sure that we keep him on that. Otherwise the pain is unbearable. Objective/Medical Story: 65-year-old white male who was recently diagnosed with multiple myeloma. He just had a confirmatory biopsy last week, and is to start therapy next week. He has diffuse joint pain, bone pain. Fatigue. Anorexia. He has been feeling increasing sylvia pain and inability to do ADLs in the last week. Denies chest pain, palpitations, but is having leg edema.He would lay down on the floor, elevate his legs, and go to sleep and the physician. When he would wake up, his legs would be skinny. But then when he stood up for too long the legs to get edematous again. When I press him about shortness of breath he states he really was not short of breath. He is just tired, and his legs and pelvis hurt so much from the bony erosions he cannot stand for too long. He has been spending many hours in a chair or laying down now for the last few months. He denies cough, fever, chills, chest congestion. The last time he stood up to do a project was in April. Today had sudden onset of palpitations, with lightheadedness and dizziness. When I explained to him that it was described that he almost passed out he denies it. He said at no time did he feel like he was losing his concentration or consciousness. He said that he just could not get off the toilet. No matter how hard he tried his legs would not support him. No chest pain. No diaphoresis. No jaw pain, left arm pain. And as such he came to the emergency room. Via EMS. When EMS arrived at the scene, he was in a wide complex tachycardia felt to be SVT. He said that he tried to get up off the toilet by himself, with him standing by, but all he did was lurch to one side, and not the toilet roll reyes off the wall. By the time they got him on the gurney he had already converted back to sinus on his own. In the emergency room he was evaluated by Dr. Pederson where heart rate was 86. Temperature was 37.1. Blood pressure 147/85. Respirations 12 and is 97% on room air. For the time is been in the emergency room he has been oxygenating adequately, and has been mildly hypertensive. His physical exam is crackles. But no respiratory distress. Chest x-ray does not show congestive heart failure. Potassium is 2.9. Troponin was normal. Calcium is elevated at 10.7. BNP is 166. EKG is unremarkable. The patient is now placed in observation for gentle diuresis, and echocardiogram in the morning. And telemetry. History - Past Medical History Cardiovascular: reports: Hypertension (Admission for uncontrolled hypertension after right hemicolectomy) Respiratory: reports: None Endocrine/Autoimmune: reports: None GI: reports: Colon polyps (Screening colonoscopy 12/04. Large colon polyp seen. Underwent right hemicolectomy December 30, 2013.) : reports: None HEENT: reports: None Psych: reports: None Musculoskeletal: reports: None Derm: reports: None MRSA Hx?: No Other Past Medical History: multiple myeloma: Diffuse musculoskeletal pain with sharp bony pain developed over the last few months. Was seen by his primary care provider and evaluation showed him to have a paraproteinemia. Final diagnosis is that of multiple myeloma. Initial consultation with oncology was July 15. Tentative date for starting therapy with bortezomib, lenalidomide, and dexamethasone is August 29. Zoledronic acid will be 4 mg monthly and he supposed to have seen a dentist. Goals of Care: 1. To start therapy for multiple myeloma with oncology supervision 2. To have therapy decreased his bony lesions, decrease his pain, and have a longer life because of it 3. To continue to work and his brand-new home, tinkering, "fixing things" Plan: 1. Full CODE STATUS. This is to be done initially. If, however, resuscitation does not bring him to his baseline of being awake, alert, and able to take care of himself, he wants us to let him go. 2. Sit down and have his discussion with his . 3. Get a list from social work of private duty hire 4. To get through this admission so that he can start therapy as soon as possible Code Status: Attempt Resuscitation Time spent on advance care plannin
[2020-08-18] MEDS: SODIUM CHLORIDE FLUSH 0.9% 10 ML SYRINGE IVP SCH ×3 (02:45→15:56)
[2020-08-18] MEDS: SODIUM CHLORIDE FLUSH 0.9% 10 ML SYRINGE IVP PRN ×2 (02:45→06:17)
[2020-08-18 04:54] LABS: CALCIUM 10.7 mg/dL (8.5-10.3); CREATININE 1.3 mg/dL (0.6-1.2)
[2020-08-18] MEDS: POTASSIUM CHLOR 10 MEQ/100 ML 10 MEQ/100 ML BAG IV SCH ×6 (06:16→13:27)
--- NOTE | 2020-08-18 07:23 | Ultrasound Report ---
PROCEDURE: Duplex Ext Veins Bilateral INDICATIONS: MERI GARNER TECHNIQUE: Real-time imaging, as well as color and pulse Doppler interrogation, were performed of the deep veins of both legs from the inguinal ligament to the popliteal fossa. COMPARISON: None FINDINGS: The common femoral, superficial femoral and popliteal veins are normally compressible, and free of intraluminal thrombus. Color and pulse Doppler demonstrate normal phasic intravascular flow in the common femoral, superficial femoral and popliteal veins. There is normal augmentation respon se to distal compression maneuver. Nonocclusive thrombus noted in one of the right calf veins possibl y peroneal or posterior tibial vein. IMPRESSION: Nonocclusive thrombus of indeterminate age involving right calf vein. No thrombus identified in the r ight common femoral vein, right superficial femoral vein or right popliteal vein. Reviewed by: Abby Rock MD, PhD on 08/18/2020 7:21 AM PDT Approved by: Abby Rock MD, PhD on 08/18/2020 7:21 AM PDT Station ID: [id number]
[2020-08-18] MEDS ORDERED: POTASSIUM CHLORIDE 20 MEQ TABLET PO ONE (08:41)
--- NOTE | 2020-08-18 08:45 | PHARMACY PROGRESS NOTE ---
- Best Possible Medication History Admit Date and Time: 08/17/20 6436 Processed by: Nursing Medication History completed: Yes As the person ultimately responsible for medication therapy, providers are able to order a medication from an existing home medication list in [facility] via the "Reconcile Routine" prior to Confirmation of that medication by clerical support specialist. Such practice is discouraged except when the physician, in their clinical judgment, deems that a medical need exists for a medication without regard to previous use.
[2020-08-18] MEDS ORDERED: ENOXAPARIN 100 MG/ML SYRINGE SUBQ SCH (09:00)
[2020-08-18] MEDS ORDERED: ENOXAPARIN 40 MG/0.4 ML SYRINGE SUBQ SCH (09:00)
[2020-08-18 09:10] LABS: INR 1.3 (0.8-1.2); PT - PROTHROMBIN TIME 14.7 secs (9.9-12.6)
[2020-08-18] MEDS ORDERED: IOVERSOL 320 100 ML VIAL IVP ONE ×2 (09:35→19:25)
--- NOTE | 2020-08-18 10:27 | CT Report ---
PROCEDURE: ANGIO CHEST W INDICATIONS: SOB, if PE CONTRAST: IV CONTRAST: Optiray 320 ml: 80 PO CONTRAST: *NO PO CONTRAST TECHNIQUE: After the administration of intravenous contrast, 2 mm thick sections acquired from the pulmonary api johanna to the posterior costophrenic angles. 3-dimensional maximum intensity projection (MIP) coronal a nd sagittal reformats were then acquired through the thorax. For radiation dose reduction, the follow ing was used: automated exposure control, adjustment of mA and/or kV according to patient size. COMPARISON: Correlation is made with chest radiograph, 08/17/2020. FINDINGS: Image quality: Excellent. Pulmonary arteries: Pulmonary arteries are normal in size, and demonstrate no intraluminal filling d efects to suggest central pulmonary embolism. Lungs and pleura: Nonenhancing dependent consolidation is seen, which is attributed to atelectasis. T here is a trace left-sided pleural effusion. No pneumothorax. Emphysematous changes are seen, includ ing subpleural bleb formation. Central and peripheral airways are patent. Mediastinum: Heart size is normal, without pericardial effusion. Moderate coronary artery calcificat ion is seen. No mediastinal or hilar adenopathy. Thoracic aorta is normal in caliber and enhancement . Esophagus is normal in caliber, without hiatal hernia. Bones and chest wall: No suspicious bony lesions. The bones demonstrate multiple small lytic appeari ng foci. Larger lytic foci can be seen involving the posterior elements of T10 and T11, with prominen t erosion of the T11 spinous process, as on series 8 image 282 and on series 11 image 26. Focal T12-L 1 degenerative change is seen, with moderate to severe disc space narrowing and associated prominent endplate irregularity and sclerosis. Degenerative changes are seen throughout, with multiple levels o f anterior bridging endplate osteophytes. A 30% compression deformity can be seen of T11, without fra nk, acute features. No posterior displacement of fracture fragments can be seen. The thyroid is rebeca l. No axillary or supraclavicular adenopathy. Abdomen: Visualized upper abdominal solid organs appear normal in the early arterial phase of enhanc ement. IMPRESSION: Negative for pulmonary embolism. Diffuse lytic bony lesions are seen which are worst at T11. Differential diagnosis includes diffuse m etastatic disease and multiple myeloma. A T11 compression deformity is seen, which may represent a pathologic fracture. Trace left-sided pleural effusion. Emphysematous changes are seen, including subpleural bleb formation. Incidental note is made of: Moderate coronary artery calcification Mild dependent atelectasis Reviewed by: Rosalio Sorto MD on 08/18/2020 9:26 AM [facility] Approved by: Rosalio Sorto MD on 08/18/2020 9:26 AM [facility] Station ID: [id number]
[2020-08-18] MEDS ORDERED: BISACODYL 10 MG SUPP PR ONE (10:33)
[2020-08-18] MEDS: MORPHINE ER 15 MG TABLET PO SCH ×2 (10:39→21:01)
[2020-08-18] MEDS ORDERED: METOPROLOL 5 MG/5 ML VIAL IVP PRN (10:44)
[2020-08-18] MEDS: METOPROLOL TARTRATE 25 MG TABLET PO SCH ×2 (11:24→21:01)
[2020-08-18] MEDS: polyethylene glycoL 3350 17 GM PACKET PO SCH (13:45)
[2020-08-18] MEDS: DOCUSATE SODIUM 250 MG CAPSULE PO SCH (13:45)
[2020-08-18] MEDS: SENNA 8.6 MG TABLET PO SCH (13:45)
--- NOTE | 2020-08-18 16:06 | PROVIDER PROGRESS NOTE ---
Assessment/Plan - Problem List (1) Near syncope Assessment/Plan: Patient has no near syncope in the hospital. Patient denied chest pain, denied shortness of breathing, dizziness, lightheaded. Patient is echo show normal EF no aortic stenosis, mild abnormal right heart pressure. New EKG patient showed atrial fibrillation with RVR at HR around 140, pt is Asymptomatic. CTA show patient has no PE with diffuse lytic bony lesion as pt already know, which pt had diagnosis of MM per pt's report. After the patient was treated with intravenous metoprolol and p.o. metoprolol, patient's heart rate was controlled. ECHO show mild abnormal right heart pressure, Patient is on lisinopril and metoprolol. (2)afib with RVR pt new EKG show patient has atrial fibrillation with RVR. After the patient was treated with intravenous metoprolol and p.o. metoprolol, patient's heart rate was controlled. Patient also was given Eliquis, patient was also found to have nonocclusive thrombus of indeterminate age involved right calf vein. (3) nonocclusive thrombus of indeterminate age in right calf vein Ultrasound show nonocclusive thrombus of indeterminate age involved right calf vein. CTA show no PE. Patient has no respiratory distress. Patient has 95% sats on room air. Plus patient had atrial fibrillation, we will start with the patient Eliquis. Patient also has a new diagnosis of multiple myeloma, Patient is in the risk to make clots (4) Hypokalemia Conclusion/Plan: resolved (5) Multiple myeloma Conclusion/Plan: To start treatment August 29. (6) HTN (hypertension) Conclusion/Plan: stable. We will continue lisinopril and metoprolol - Current Meds Current Meds: Current Medications Generic Name Dose Route Start Last Admin Trade Name Freq PRN Reason Stop Dose Admin Docusate Sodium 250 - 500 mg 08/18/20 11:00 08/18/20 13:45 Colace 250mg Capsule PO 250 mg DAILY QUINTIN Administration Metoprolol Tartrate 5 mg 08/18/20 10:44 08/18/20 10:55 Lopressor Inj IVP 5 mg Q6H PRN Administration Tachycardia Metoprolol Tartrate 25 mg 08/18/20 12:00 08/18/20 11:24 Lopressor PO 25 mg BID QUINTIN Administration Morphine Sulfate 15 mg 08/18/20 10:00 08/18/20 10:39 PO 15 mg BID QUINTIN Administration Polyethylene Glycol 17 gm 08/18/20 11:00 08/18/20 13:45 Miralax PO 17 gm DAILY QUINTIN Administration Senna 8.6 - 17.2 mg 08/18/20 11:00 08/18/20 13:45 Senokot PO 8.6 mg DAILY QUINTIN Administration Sodium Chloride 10 ml 08/17/20 22:45 08/18/20 06:17 Normal Saline Flush 0.9% IVP 10 ml PRN PRN Administration NEEDED PER PROVIDER ORDERS Sodium Chloride 10 ml 08/18/20 01:00 08/18/20 15:56 Normal Saline Flush 0.9% IVP 10 ml 0100,0900,1700 QUINTIN Administration - Lab Result Fish Bone Diagrams: 08/17/20 21:20 08/18/20 13:45 - Additional Planning My Orders: My Active Orders 08/18/20 Social Work Consult [CONS] Routine DRUG SCREEN MEDICAL (MUDS) [URIN] Urgent 08/18/20 08:46 Echo Transthoracic Complete [ECHO] Stat 08/18/20 09:01 oxyCODONE [Roxicodone] 10 mg PO Q6H PRN 08/18/20 10:00 Morphine ER 15 mg PO BID 08/18/20 10:44 Metoprolol Inj [Lopressor Inj] 5 mg IVP Q6H PRN 08/18/20 11:00 Docusate Sodium 250Mg Capsule [Colace 250Mg Capsule] 250 - 500 mg PO DAILY Senna [Senokot] 8.6 - 17.2 mg PO DAILY polyethylene glycoL 3350 [Miralax] 17 gm PO DAILY 08/18/20 11:19 Nutrition Consult [CONS] Routine 08/18/20 12:00 Metoprolol Tartrate [Lopressor] 25 mg PO BID 08/18/20 21:00 Apixaban [Eliquis] 5 mg PO BID 08/19/20 Evaluate and Treat OT [OT] Routine Evaluate and Treat PT [PT] Routine 08/19/20 05:00 BMP - BASIC METABOLIC PANEL [CHEM] DAILYLAB CBC - COMP BLD CT W/AUTO DIFF [HEME] DAILYLAB 08/20/20 05:00 BMP - BASIC METABOLIC PANEL [CHEM] DAILYLAB CBC - COMP BLD CT W/AUTO DIFF [HEME] DAILYLAB 11/01/20 05:00 BMP - BASIC METABOLIC PANEL [CHEM] DAILYLAB CBC - COMP BLD CT W/AUTO DIFF [HEME] DAILYLAB 08/22/20 05:00 BMP - BASIC METABOLIC PANEL [CHEM] DAILYLAB CBC - COMP BLD CT W/AUTO DIFF [HEME] DAILYLAB Subjective - Subjective Patient Reports: Feeling Better Objective Vital Signs: Vital Signs - 24 hr 08/17/20 08/17/20 08/17/20 21:05 21:10 21:16 Temperature 37.1 C 37.1 C 37.1 C Heart Rate 106 H 106 H 105 H Heart Rate [ Brachial] Respiratory 18 18 18 Rate Blood Pressure 188/116 H 118/115 H 182/91 H Blood Pressure [Left Brachial artery] Blood Pressure [Right] O2 Saturation 95 97 97 08/17/20 08/17/20 08/17/20 21:41 21:42 21:43 Temperature 37.1 C 37.1 C 37.1 C Heart Rate 108 H 89 86 Heart Rate [ Brachial] Respiratory 16 16 15 Rate Blood Pressure 188/92 H 185/88 H 157/84 H Blood Pressure [Left Brachial artery] Blood Pressure [Right] O2 Saturation 95 94 100 08/17/20 08/17/20 08/17/20 21:49 21:55 22:03 Temperature 37.1 C 37.1 C 37.1 C Heart Rate 86 89 87 Heart Rate [ Brachial] Respiratory 12 15 15 Rate Blood Pressure 147/85 H 149/82 H 131/71 H Blood Pressure [Left Brachial artery] Blood Pressure [Right] O2 Saturation 97 94 95 08/17/20 08/17/20 08/17/20 22:20 22:30 22:52 Temperature 37.1 C 37.1 C 37.0 C Heart Rate 88 94 88 Heart Rate [ Brachial] Respiratory 20 15 15 Rate Blood Pressure 161/84 H 160/82 H 143/80 H Blood Pressure [Left Brachial artery] Blood Pressure [Right] O2 Saturation 96 97 95 08/17/20 08/18/20 08/18/20 23:00 00:00 07:27 Temperature 37 C 37 C 36.6 C Heart Rate 87 Heart Rate [ 87 91 Brachial] Respiratory 15 20 20 Rate Blood Pressure 141/79 H Blood Pressure 159/78 H 121/56 L [Left Brachial artery] Blood Pressure [Right] O2 Saturation 96 96 92 08/18/20 08/18/20 08/18/20 10:55 11:03 11:08 Temperature Heart Rate Heart Rate [ 111 H 115 H Brachial] Respiratory Rate Blood Pressure 126/60 Blood Pressure 121/75 133/91 H [Left Brachial artery] Blood Pressure [Right] O2 Saturation 08/18/20 08/18/20 08/18/20 11:15 11:24 11:25 Temperature Heart Rate Heart Rate [ 140 H Brachial] Respiratory Rate Blood Pressure 130/82 H 130/92 H Blood Pressure 130/92 H [Left Brachial artery] Blood Pressure [Right] O2 Saturation 08/18/20 08/18/20 08/18/20 11:48 13:00 15:54 Temperature 37 C Heart Rate Heart Rate [ 106 H 83 81 Brachial] Respiratory 19 19 Rate Blood Pressure Blood Pressure 117/68 137/84 H [Left Brachial artery] Blood Pressure 119/66 [Right] O2 Saturation 92 95 Oxygen O2 Source Room air I&O (Last 24 Hrs): Intake and Output Totals x24h 08/16/20 08/17/20 08/18/20 23:59 23:59 23:59 Intake Total 200 1371.667 Output Total 1275 1500 Balance -1075 -128.333 General: Alert, Oriented x3, No acute distress HEENT: Atraumatic Neck: Supple Lymphatic: no adenopathy Neuro: Alert, Non Focal, Oriented Times 3 Cardiovascular: Normal S1, Normal S2 Respiratory: Chest non-tender, No respiratory distress Abdomen: Normal bowel sounds, Soft, No tenderness Extremities: Normal pulses - Results Results: Laboratory Results WBC 5.4 x10^3/uL (4.8-10.8) 08/17/20 21:20 RBC 3.10 10^6/uL (4.70-6.10) L 08/17/20 21:20 Hgb 10.7 g/dL (14.0-18.0) L 08/17/20 21:20 Hct 32.0 % (42.0-52.0) L 08/17/20 21:20 MCV 103.2 fL (80.0-94.0) H 08/17/20 21:20 MCH 34.5 pg (27.0-31.0) H 08/17/20 21:20 MCHC 33.4 g/dL (32.0-36.0) 08/17/20 21:20 RDW 14.5 % (12.0-15.0) 08/17/20 21:20 Plt Count 169 10^3/uL (130-450) 08/17/20 21:20 MPV 9.3 fL (7.4-11.4) 08/17/20 21:20 Neut # (Auto) 3.5 10^3/uL (1.5-6.6) 08/17/20 21:20 Lymph # (Auto) 1.2 10^3/uL (1.5-3.5) L 08/17/20 21:20 Prentiss # (Auto) 0.6 10^3/uL (0.0-1.0) 08/17/20 21:20 Eos # (Auto) 0.1 10^3/uL (0.0-0.7) 08/17/20 21:20 Baso # (Auto) 0.0 10^3/uL (0.0-0.1) 08/17/20 21:20 Absolute Nucleated RBC 0.00 x10^3/uL 08/17/20 21:20 Nucleated RBC % 0.0 /100WBC 08/17/20 21:20 PT 14.7 secs (9.9-12.6) H 08/18/20 04:20 INR 1.3 (0.8-1.2) H 08/18/20 04:20 D-Dimer > 1050.0 ng/mL (200.0-255.0) H 08/18/20 04:20 Sodium 138 mmol/L (135-145) 08/18/20 04:20 Potassium 3.7 mmol/L (3.5-5.0) 08/18/20 13:45 Chloride 104 mmol/L (101-111) 08/18/20 04:20 Carbon Dioxide 27 mmol/L (21-32) 08/18/20 04:20 Anion Gap 7.0 (6-13) 08/18/20 04:20 BUN 29 mg/dL (6-20) H 08/18/20 04:20 Creatinine 1.3 mg/dL (0.6-1.2) H 08/18/20 04:20 Estimated GFR (MDRD) 55 (>89) L 08/18/20 04:20 Glucose 109 mg/dL (70-100) H 08/18/20 04:20 Calcium 10.7 mg/dL (8.5-10.3) H 08/18/20 04:20 Phosphorus 2.6 mg/dL (2.5-4.6) 08/17/20 21:20 Magnesium 1.9 mg/dL (1.7-2.8) 08/17/20 21:20 Total Bilirubin 0.9 mg/dL (0.2-1.0) 08/17/20 21:20 AST 22 IU/L (10-42) 08/17/20 21:20 ALT 29 IU/L (10-60) 08/17/20 21:20 Alkaline Phosphatase 69 IU/L (42-121) 08/17/20 21:20 Troponin I High Sens 19.6 ng/L (2.3-19.7) 08/17/20 21:20 B-Natriuretic Peptide 216 pg/mL (5-100) H 08/18/20 04:20 Total Protein 10.7 g/dL (6.7-8.2) H 08/17/20 21:20 Albumin 2.3 g/dL (3.2-5.5) L 08/17/20 21:20 Globulin 8.4 g/dL (2.1-4.2) H 08/17/20 21:20 Albumin/Globulin Ratio 0.3 (1.0-2.2) L 08/17/20 21:20 Lipase 24 U/L (22-51) 08/17/20 21:20 Ethyl Alcohol < 5.0 mg/dL 08/18/20 11:45 - Procedures Procedures: Procedures CLOSED ENDOSCOPIC BIOPSY OF LARGE INTESTINE (11/26/13) COLONOSCOPY (09/23/14) ENDO RECTUM POLYPECTOMY (11/26/13) INSPECTION OF LOWER INTESTINAL TRACT, ENDO (12/10/17) LAPAROSCOPIC RIGHT HEMICOLECTOMY (12/29/13) SUPPLEMENT ABDOMINAL WALL WITH SYNTH SUB, PERC ENDO APPROACH (02/28/18) ABX Reporting Has patient been on IV antibiotics over the past 48 hours?: No Current Medications - Current Medications Current Medications: Active Medications Acetaminophen (Tylenol) 650 mg PO Q4HR PRN PRN Reason: Pain 1 to 4 Apixaban (Eliquis) 5 mg PO BID [facility] Docusate Sodium (Colace 250mg Capsule) 250 - 500 mg PO DAILY [facility] Last Admin: 08/18/20 13:45 Dose: 250 mg Documented by: Metoprolol Tartrate (Lopressor Inj) 5 mg IVP Q6H PRN PRN Reason: Tachycardia Last Admin: 08/18/20 10:55 Dose: 5 mg Documented by: Metoprolol Tartrate (Lopressor) 25 mg PO BID [facility] Last Admin: 08/18/20 11:24 Dose: 25 mg Documented by: Morphine Sulfate () 15 mg PO BID [facility] Last Admin: 08/18/20 10:39 Dose: 15 mg Documented by: Ondansetron HCl (Zofran Odt) 4 mg TL Q6HR PRN PRN Reason: Nausea / Vomiting Ondansetron HCl (Zofran Inj) 4 mg IVP Q6HR PRN PRN Reason: Nausea / Vomiting Oxycodone HCl (Roxicodone) 10 mg PO Q6H PRN PRN Reason: PAIN Polyethylene Glycol (Miralax) 17 gm PO DAILY [facility] Last Admin: 08/18/20 13:45 Dose: 17 gm Documented by: Senna (Senokot) 8.6 - 17.2 mg PO DAILY [facility] Last Admin: 08/18/20 13:45 Dose: 8.6 mg Documented by: Sodium Chloride (Normal Saline Flush 0.9%) 10 ml IVP PRN PRN PRN Reason: NEEDED PER PROVIDER ORDERS Last Admin: 08/18/20 06:17 Dose: 10 ml Documented by: Sodium Chloride (Normal Saline Flush 0.9%) 10 ml IVP 0100,0900,1700 [facility] Last Admin: 08/18/20 15:56 Dose: 10 ml Documented by: [email or web address] [Zestril] 10 mg PO DAILY 11/26/13 Flaxseed Oil 1,000 mg PO DAILY 12/24/17 Glucosamine HCl 3 tab PO DAILY 12/24/17 Multivitamin [Multiple Vitamins] 2 each PO DAILY 12/24/17 Niacin 500 mg PO DAILY 12/24/17 [place]-3/Dha/Epa/Fish Oil [Fish Oil Conc 1,000 mg Softgel] 1,360 mg PO DAILY 12/24/17 Acyclovir [Zovirax] 400 mg PO BID 08/12/20 Morphine Sulfate [Ms Contin] 15 mg ORAL BID 08/12/20 Ondansetron [Ondansetron Odt] 8 mg PO Q8HR PRN 08/12/20 dexAMETHasone [Dexamethasone] 4 mg PO ONCE 08/12/20 oxyCODONE [Roxicodone] 10 mg PO Q4-6H PRN 08/12/20
[2020-08-18] MEDS: APIXABAN 5 MG TABLET PO SCH (21:01)
[2020-08-19] MEDS: SODIUM CHLORIDE FLUSH 0.9% 10 ML SYRINGE IVP SCH ×3 (01:37→18:29)
[2020-08-19 05:36] LABS: BASOPHILS % (AUTO) 0.2 %; EOSINOPHILS # (AUTO) 0.1 10^3/uL (0.0-0.7); EOSINOPHILS % (AUTO) 1.9 %; HGB - HEMOGLOBIN 8.8 g/dL (14.0-18.0); LYMPHOCYTES # (AUTO) 1.2 10^3/uL (1.5-3.5); LYMPHOCYTES % (AUTO) 26.2 %; MEAN CORPUSCULAR HEMOGLOBIN 32.7 pg (27.0-31.0); MEAN CORPUSCULAR HGB CONC 31.5 g/dL (32.0-36.0); MEAN CORPUSCULAR VOLUME 103.7 fL (80.0-94.0); MEAN PLATELET VOLUME 9.2 fL (7.4-11.4); MONOCYTES # (AUTO) 0.5 10^3/uL (0.0-1.0); MONOCYTES % (AUTO) 11.2 %; NEUTROPHILS # (AUTO) 2.9 10^3/uL (1.5-6.6); NEUTROPHILS % (AUTO) 60.3 %; PLT - PLATELET COUNT 155 10^3/uL (130-450); RED BLOOD COUNT 2.69 10^6/uL (4.70-6.10); RED CELL DISTRIBUTION WIDTH 14.5 % (12.0-15.0); WHITE BLOOD COUNT 4.7 x10^3/uL (4.8-10.8)
[2020-08-19 05:45] LABS: CALCIUM 10.7 mg/dL (8.5-10.3); CREATININE 1.3 mg/dL (0.6-1.2)
[2020-08-19] MEDS ORDERED: POTASSIUM CHLORIDE 20 MEQ TABLET PO ONE ×2 (08:56→09:10)
[2020-08-19 09:33] LABS: ABSOLUTE RETICS # AUTO 0.047 10^6/uL (0.020-0.110); RED BLOOD COUNT 2.6 10^6/uL (4.70-6.10)
[2020-08-19] MEDS: APIXABAN 5 MG TABLET PO SCH ×2 (09:53→21:18)
[2020-08-19] MEDS: METOPROLOL TARTRATE 25 MG TABLET PO SCH ×2 (09:56→21:17)
[2020-08-19 09:57] LABS: MUDS CUTOFF CONCENTRATIONS CUTOFF CONC BELOW:
[2020-08-19] MEDS: DOCUSATE SODIUM 250 MG CAPSULE PO SCH (09:59)
[2020-08-19] MEDS: SENNA 8.6 MG TABLET PO SCH (09:59)
[2020-08-19 10:12] LABS: % IRON SATURATION 34 % (20-50); IRON 62 ug/dL (45-182); TOTAL IRON BINDING CAPACITY 182 ug/dL (250-450); TRANSFERRIN 130 mg/dL (180-329)
[2020-08-19 10:13] LABS: AMPHETAMINE SCREEN,URINE NEGATIVE (NEGATIVE); BENZODIAZEPINES SCREEN, URINE NEGATIVE (NEGATIVE); COCAINE SCREEN URINE NEGATIVE (NEGATIVE); METHADONE SCREEN, URINE NEGATIVE (NEGATIVE); METHAMPHETAMINES SCREEN, URINE NEGATIVE (NEGATIVE); OPIATE SCREEN, URINE POSITIVE (NEGATIVE); OXYCODONE SCREEN, URINE POSITIVE (NEGATIVE); PROPOXYPHENE SCREEN, URINE NEGATIVE (NEGATIVE); TRICYCLIC ANTIDEPRESSANT,URINE NEGATIVE (NEGATIVE)
[2020-08-19] MEDS: MORPHINE ER 15 MG TABLET PO SCH ×2 (10:49→21:17)
[2020-08-19] MEDS: polyethylene glycoL 3350 17 GM PACKET PO SCH (10:50)
[2020-08-19] MEDS ORDERED: FUROSEMIDE 20 MG/2 ML VIAL IVP SCH (12:00)
--- NOTE | 2020-08-19 17:08 | PROVIDER PROGRESS NOTE ---
Assessment/Plan - Problem List (1) Near syncope Assessment/Plan: 08/19. improved. pt feel better, and no near or syncope in hospital. his HR is controlled. Patient's suddenly feeling of palpitation, shortness of breathing, near syncope in the admission was likely caused by new onset atrial fibrillation with RVR at heart rate around 140-150. Continue metoprolol, continue Eliquis, Continue shelter monitor Patient has no near syncope in the hospital. Patient denied chest pain, denied shortness of breathing, dizziness, lightheaded. Patient is echo show normal EF no aortic stenosis, mild abnormal right heart pressure. New EKG patient showed atrial fibrillation with RVR at HR around 140, pt is Asymptomatic. CTA show patient has no PE with diffuse lytic bony lesion as pt already know, which pt had diagnosis of MM per pt's report. After the patient was treated with intravenous metoprolol and p.o. metoprolol, patient's heart rate was controlled. ECHO show mild abnormal right heart pressure, Patient is on lisinopril and metoprolol. (2)afib with RVR 08/19 improved. pt's HR is controlled by metoprolol, continue eliquis pt EKG show patient has atrial fibrillation with RVR. After the patient was treated with intravenous metoprolol and p.o. metoprolol, patient's heart rate was controlled. Patient also was given Eliquis, patient was also found to have nonocclusive thrombus of indeterminate age involved right calf vein. (3) nonocclusive thrombus of indeterminate age in right calf vein Ultrasound show nonocclusive thrombus of indeterminate age involved right calf vein. CTA show no PE. Patient has no respiratory distress. Patient has 95% sats on room air. Plus patient had atrial fibrillation, we will start with the patient Eliquis. Patient also has a new diagnosis of multiple myeloma, Patient is in the risk to make clots (4) Hypokalemia Conclusion/Plan: resolved (5) Multiple myeloma Conclusion/Plan: 1029, I went to [facility] clinic to update the patient medical condition to patient's oncologist per pt's request, pt had schedule on early next to see his onc ologist, his oncologist hope pt start his chemotherapy as soon as possible. To start treatment August 29. (6) HTN (hypertension) Conclusion/Plan: stable. We will continue lisinopril and metoprolol (7)diastolic heart failure Patient's EHCO reveal ECHO show mild abnormal right heart pressure, RVSP is 46 mmHG. pt had elevated BNP, today pt's O2 sats has drop, pt feel tired. continue lisinopril, and metoprolol, add Lasix 20mg IV bid. order CXR, is pending. continue lab and vital monitor (8)weakness order PT/OT, will evaluate and treat for pt - Current Meds Current Meds: Current Medications Generic Name Dose Route Start Last Admin Trade Name Freq PRN Reason Stop Dose Admin Apixaban 5 mg 08/18/20 21:00 08/19/20 09:53 Eliquis PO 5 mg BID QUINTIN Administration Docusate Sodium 250 - 500 mg 08/18/20 11:00 08/19/20 09:59 Colace 250mg Capsule PO 250 mg DAILY QUINTIN Administration Furosemide 20 mg 08/19/20 12:00 08/19/20 11:46 Lasix Inj 20mg Vial IVP 20 mg DAILY QUINTIN Administration Metoprolol Tartrate 5 mg 08/18/20 10:44 08/18/20 10:55 Lopressor Inj IVP 5 mg Q6H PRN Administration Tachycardia Metoprolol Tartrate 25 mg 08/18/20 12:00 08/19/20 09:56 Lopressor PO 25 mg BID QUINTIN Administration Morphine Sulfate 15 mg 08/18/20 10:00 08/19/20 10:49 PO 15 mg BID QUINTIN Administration Polyethylene Glycol 17 gm 08/18/20 11:00 08/19/20 10:50 Miralax PO 17 gm DAILY QUINTIN Administration Senna 8.6 - 17.2 mg 08/18/20 11:00 08/19/20 09:59 Senokot PO 8.6 mg DAILY QUINTIN Administration Sodium Chloride 10 ml 08/17/20 22:45 08/18/20 06:17 Normal Saline Flush 0.9% IVP 10 ml PRN PRN Administration NEEDED PER PROVIDER ORDERS Sodium Chloride 10 ml 08/18/20 01:00 08/19/20 11:46 Normal Saline Flush 0.9% IVP 10 ml 0100,0900,1700 QUINTIN Administration - Lab Result Fish Bone Diagrams: 08/19/20 05:25 08/19/20 05:25 - Additional Planning My Orders: My Active Orders 08/18/20 21:00 Apixaban [Eliquis] 5 mg PO BID 08/19/20 OCCULT BLOOD IN PAT. SINGLE [RAPID] Urgent Evaluate and Treat OT [OT] Routine Evaluate and Treat PT [PT] Routine 08/19/20 09:28 Incentive Spirometry - RT [RC] .TID 08/19/20 12:00 FUROSEMIDE INJ 20mg VIAL [LASIX INJ 20mg VIAL] 20 mg IVP DAILY 08/20/20 05:00 BMP - BASIC METABOLIC PANEL [CHEM] DAILYLAB CBC - COMP BLD CT W/AUTO DIFF [HEME] DAILYLAB 08/21/20 05:00 BMP - BASIC METABOLIC PANEL [CHEM] DAILYLAB CBC - COMP BLD CT W/AUTO DIFF [HEME] DAILYLAB 08/22/20 05:00 BMP - BASIC METABOLIC PANEL [CHEM] DAILYLAB CBC - COMP BLD CT W/AUTO DIFF [HEME] DAILYLAB Subjective - Subjective Patient Reports: Feeling Better Objective Vital Signs: Vital Signs - 24 hr 08/18/20 08/18/20 08/18/20 17:06 21:00 21:01 Temperature 37 C 37 C Heart Rate 81 Heart Rate [ Activity] Heart Rate [ 91 Brachial] Heart Rate [ Supine] Respiratory 19 18 Rate Blood Pressure 113/82 H Blood Pressure [Activity] Blood Pressure [Left Brachial artery] Blood Pressure 113/82 H [Right] Blood Pressure [Supine] O2 Saturation 95 93 08/19/20 08/19/20 08/19/20 00:42 04:50 07:39 Temperature 37.1 C 36.6 C 36.8 C Heart Rate Heart Rate [ Activity] Heart Rate [ 91 78 82 Brachial] Heart Rate [ Supine] Respiratory 18 18 19 Rate Blood Pressure Blood Pressure [Activity] Blood Pressure 153/74 H 127/66 [Left Brachial artery] Blood Pressure 144/90 H [Right] Blood Pressure [Supine] O2 Saturation 93 92 94 08/19/20 08/19/20 08/19/20 09:56 13:00 14:30 Temperature 37.1 C Heart Rate Heart Rate [ 89 Activity] Heart Rate [ 73 Brachial] Heart Rate [ 75 Supine] Respiratory 20 Rate Blood Pressure 144/90 H Blood Pressure 180/86 H [Activity] Blood Pressure [Left Brachial artery] Blood Pressure 132/59 H [Right] Blood Pressure 132/59 H [Supine] O2 Saturation 91 L 08/19/20 15:59 Temperature 37 C Heart Rate Heart Rate [ Activity] Heart Rate [ 81 Brachial] Heart Rate [ Supine] Respiratory 16 Rate Blood Pressure Blood Pressure [Activity] Blood Pressure [Left Brachial artery] Blood Pressure 121/67 [Right] Blood Pressure [Supine] O2 Saturation 91 L Oxygen O2 Source Room air I&O (Last 24 Hrs): Intake and Output Totals x24h 08/17/20 08/18/20 08/19/20 23:59 23:59 23:59 Intake Total 200 1571.667 480 Output Total 1275 2100 2125 Balance -1075 -528.338 -8265 General: Alert, Oriented x3, No acute distress HEENT: Atraumatic Neck: Supple Lymphatic: no adenopathy Neuro: Alert, Non Focal, Oriented Times 3 Cardiovascular: Regular rate, Normal S1, Normal S2 Respiratory: Chest non-tender, No respiratory distress Abdomen: Normal bowel sounds, Soft, No tenderness Extremities: Normal pulses - Results Results: Laboratory Results WBC 4.7 x10^3/uL (4.8-10.8) L 08/19/20 05:25 RBC 2.60 10^6/uL (4.70-6.10) L 08/19/20 05:25 RBC 2.69 10^6/uL (4.70-6.10) L 08/19/20 05:25 Hgb 8.8 g/dL (14.0-18.0) L 08/19/20 05:25 Hct 27.9 % (42.0-52.0) L 08/19/20 05:25 MCV 103.7 fL (80.0-94.0) H 08/19/20 05:25 MCH 32.7 pg (27.0-31.0) H 08/19/20 05:25 MCHC 31.5 g/dL (32.0-36.0) L 08/19/20 05:25 RDW 14.5 % (12.0-15.0) 08/19/20 05:25 Plt Count 155 10^3/uL (130-450) 08/19/20 05:25 MPV 9.2 fL (7.4-11.4) 08/19/20 05:25 Reticulocyte % (Auto) 1.81 % (0.5-2.3) 08/19/20 05:25 Neut # (Auto) 2.9 10^3/uL (1.5-6.6) 08/19/20 05:25 Lymph # (Auto) 1.2 10^3/uL (1.5-3.5) L 08/19/20 05:25 [place] # (Auto) 0.5 10^3/uL (0.0-1.0) 08/19/20 05:25 Eos # (Auto) 0.1 10^3/uL (0.0-0.7) 08/19/20 05:25 Baso # (Auto) 0.0 10^3/uL (0.0-0.1) 08/19/20 05:25 Absolute Nucleated RBC 0.00 x10^3/uL 08/19/20 05:25 Nucleated RBC % 0.0 /100WBC 08/19/20 05:25 Absolute Retic 0.047 10^6/uL (0.020-0.110) 08/19/20 05:25 PT 14.7 secs (9.9-12.6) H 08/18/20 04:20 INR 1.3 (0.8-1.2) H 08/18/20 04:20 D-Dimer > 1050.0 ng/mL (200.0-255.0) H 08/18/20 04:20 Sodium 137 mmol/L (135-145) 08/19/20 05:25 Potassium 3.2 mmol/L (3.5-5.0) L 08/19/20 05:25 Chloride 106 mmol/L (101-111) 08/19/20 05:25 Carbon Dioxide 25 mmol/L (21-32) 08/19/20 05:25 Anion Gap 6.0 (6-13) 08/19/20 05:25 BUN 35 mg/dL (6-20) H 08/19/20 05:25 Creatinine 1.3 mg/dL (0.6-1.2) H 08/19/20 05:25 Estimated GFR (MDRD) 55 (>89) L 08/19/20 05:25 Glucose 113 mg/dL (70-100) H 08/19/20 05:25 Calcium 10.7 mg/dL (8.5-10.3) H 08/19/20 05:25 Phosphorus 2.6 mg/dL (2.5-4.6) 08/17/20 21:20 Magnesium 1.9 mg/dL (1.7-2.8) 08/17/20 21:20 Iron 62 ug/dL (45-182) 08/19/20 05:25 TIBC 182 ug/dL (250-450) L 08/19/20 05:25 % Saturation 34 % (20-50) 08/19/20 05:25 Transferrin 130 mg/dL (180-329) L 08/19/20 05:25 Ferritin 188.0 ng/mL (23.9-336.2) 08/19/20 05:25 Total Bilirubin 0.9 mg/dL (0.2-1.0) 08/17/20 21:20 AST 22 IU/L (10-42) 08/17/20 21:20 ALT 29 IU/L (10-60) 08/17/20 21:20 Alkaline Phosphatase 69 IU/L (42-121) 08/17/20 21:20 Lactate Dehydrogenase 190 IU/L (91-225) 08/19/20 05:25 Troponin I High Sens 19.6 ng/L (2.3-19.7) 08/17/20 21:20 B-Natriuretic Peptide 255 pg/mL (5-100) H 08/19/20 05:25 Total Protein 10.7 g/dL (6.7-8.2) H 08/17/20 21:20 Albumin 2.3 g/dL (3.2-5.5) L 08/17/20 21:20 Globulin 8.4 g/dL (2.1-4.2) H 08/17/20 21:20 Albumin/Globulin Ratio 0.3 (1.0-2.2) L 08/17/20 21:20 Lipase 24 U/L (22-51) 08/17/20 21:20 Vitamin B12 335 pg/mL (180-914) 08/19/20 05:25 Urine Opiates Screen POSITIVE (NEGATIVE) H 08/19/20 07:58 Ur Oxycodone Screen POSITIVE (NEGATIVE) H 08/19/20 07:58 Urine Methadone Screen NEGATIVE (NEGATIVE) 08/19/20 07:58 Ur Propoxyphene Screen NEGATIVE (NEGATIVE) 08/19/20 07:58 Ur Barbiturates Screen NEGATIVE (NEGATIVE) 08/19/20 07:58 Ur Tricyclics Screen NEGATIVE (NEGATIVE) 08/19/20 07:58 Ur Phencyclidine Scrn NEGATIVE (NEGATIVE) 08/19/20 07:58 Ur Amphetamine Screen NEGATIVE (NEGATIVE) 08/19/20 07:58 U Methamphetamines Scrn NEGATIVE (NEGATIVE) 08/19/20 07:58 U Benzodiazepines Scrn NEGATIVE (NEGATIVE) 08/19/20 07:58 Urine Cocaine Screen NEGATIVE (NEGATIVE) 08/19/20 07:58 U Cannabinoids Screen NEGATIVE (NEGATIVE) 08/19/20 07:58 Ethyl Alcohol < 5.0 mg/dL 08/18/20 11:45 - Procedures Procedures: Procedures CLOSED ENDOSCOPIC BIOPSY OF LARGE INTESTINE (11/26/13) COLONOSCOPY (09/23/14) ENDO RECTUM POLYPECTOMY (11/26/13) INSPECTION OF LOWER INTESTINAL TRACT, ENDO (12/10/17) LAPAROSCOPIC RIGHT HEMICOLECTOMY (12/29/13) SUPPLEMENT ABDOMINAL WALL WITH SYNTH SUB, PERC ENDO APPROACH (02/28/18) ABX Reporting Has patient been on IV antibiotics over the past 48 hours?: No Current Medications - Current Medications Current Medications: Active Medications Acetaminophen (Tylenol) 650 mg PO Q4HR PRN PRN Reason: Pain 1 to 4 Apixaban (Eliquis) 5 mg PO BID COUNTS INCLUDE 234 BEDS AT THE [facility] Last Admin: 08/19/20 09:53 Dose: 5 mg Documented by: Docusate Sodium (Colace 250mg Capsule) 250 - 500 mg PO DAILY COUNTS INCLUDE 234 BEDS AT THE [facility] Last Admin: 08/19/20 09:59 Dose: 250 mg Documented by: Furosemide (Lasix Inj 20mg Vial) 20 mg IVP BIDDIURETIC QUINTIN Metoprolol Tartrate (Lopressor Inj) 5 mg IVP Q6H PRN PRN Reason: Tachycardia Last Admin: 08/18/20 10:55 Dose: 5 mg Documented by: Metoprolol Tartrate (Lopressor) 25 mg PO BID COUNTS INCLUDE 234 BEDS AT THE [facility] Last Admin: 08/19/20 09:56 Dose: 25 mg Documented by: Morphine Sulfate () 15 mg PO BID COUNTS INCLUDE 234 BEDS AT THE [facility] Last Admin: 08/19/20 10:49 Dose: 15 mg Documented by: Ondansetron HCl (Zofran Odt) 4 mg TL Q6HR PRN PRN Reason: Nausea / Vomiting Ondansetron HCl (Zofran Inj) 4 mg IVP Q6HR PRN PRN Reason: Nausea / Vomiting Oxycodone HCl (Roxicodone) 10 mg PO Q6H PRN PRN Reason: PAIN Polyethylene Glycol (Miralax) 17 gm PO DAILY COUNTS INCLUDE 234 BEDS AT THE [facility] Last Admin: 08/19/20 10:50 Dose: 17 gm Documented by: Senna (Senokot) 8.6 - 17.2 mg PO DAILY COUNTS INCLUDE 234 BEDS AT THE [facility] Last Admin: 08/19/20 09:59 Dose: 8.6 mg Documented by: Sodium Chloride (Normal Saline Flush 0.9%) 10 ml IVP PRN PRN PRN Reason: NEEDED PER PROVIDER ORDERS Last Admin: 08/18/20 06:17 Dose: 10 ml Documented by: Sodium Chloride (Normal Saline Flush 0.9%) 10 ml IVP 0100,0900,1700 COUNTS INCLUDE 234 BEDS AT THE [facility] Last Admin: 08/19/20 11:46 Dose: 10 ml Documented by: lisinopriL [Zestril] 10 mg PO DAILY 11/26/13 Flaxseed Oil 1,000 mg PO DAILY 12/24/17 Glucosamine HCl 3 tab PO DAILY 12/24/17 Multivitamin [Multiple Vitamins] 2 each PO DAILY 12/24/17 Niacin 500 mg PO DAILY 12/24/17 [place]-3/Dha/Epa/Fish Oil [Fish Oil Conc 1,000 mg Softgel] 1,360 mg PO DAILY 12/24/17 Acyclovir [Zovirax] 400 mg PO BID 08/12/20 Morphine Sulfate [Ms Contin] 15 mg ORAL BID 08/12/20 Ondansetron [Ondansetron Odt] 8 mg PO Q8HR PRN 08/12/20 dexAMETHasone [Dexamethasone] 40 mg PO Q7D 08/12/20 oxyCODONE [Roxicodone] 10 mg PO Q4-6H PRN 08/12/20
[2020-08-19] MEDS: oxyCODONE 5 MG TABLET PO PRN (18:27)
[2020-08-19] MEDS: FUROSEMIDE 20 MG/2 ML VIAL IVP SCH (18:29)
[2020-08-19 19:45] LABS: HGB - HEMOGLOBIN 10.4 g/dL (14.0-18.0)
[2020-08-20] MEDS: oxyCODONE 5 MG TABLET PO PRN ×3 (00:45→23:40)
[2020-08-20] MEDS: SODIUM CHLORIDE FLUSH 0.9% 10 ML SYRINGE IVP SCH ×4 (00:45→23:41)
[2020-08-20] MEDS: SODIUM CHLORIDE FLUSH 0.9% 10 ML SYRINGE IVP PRN ×3 (00:46→13:31)
[2020-08-20 05:15] LABS: BASOPHILS % (AUTO) 0.2 %; EOSINOPHILS # (AUTO) 0.1 10^3/uL (0.0-0.7); EOSINOPHILS % (AUTO) 2.3 %; HGB - HEMOGLOBIN 9.7 g/dL (14.0-18.0); LYMPHOCYTES # (AUTO) 2.2 10^3/uL (1.5-3.5); LYMPHOCYTES % (AUTO) 39.6 %; MEAN CORPUSCULAR HEMOGLOBIN 33.8 pg (27.0-31.0); MEAN CORPUSCULAR HGB CONC 32.3 g/dL (32.0-36.0); MEAN CORPUSCULAR VOLUME 104.5 fL (80.0-94.0); MEAN PLATELET VOLUME 9.1 fL (7.4-11.4); MONOCYTES # (AUTO) 0.6 10^3/uL (0.0-1.0); MONOCYTES % (AUTO) 10.6 %; NEUTROPHILS # (AUTO) 2.6 10^3/uL (1.5-6.6); NEUTROPHILS % (AUTO) 47.1 %; PLT - PLATELET COUNT 187 10^3/uL (130-450); RED BLOOD COUNT 2.87 10^6/uL (4.70-6.10); RED CELL DISTRIBUTION WIDTH 14.6 % (12.0-15.0); WHITE BLOOD COUNT 5.6 x10^3/uL (4.8-10.8)
[2020-08-20 05:23] LABS: CALCIUM 11.2 mg/dL (8.5-10.3); CREATININE 1.3 mg/dL (0.6-1.2)
[2020-08-20] MEDS: FUROSEMIDE 20 MG/2 ML VIAL IVP SCH ×2 (06:43→13:23)
[2020-08-20] MEDS: ACETAMINOPHEN 325 MG TABLET PO PRN (06:43)
[2020-08-20] MEDS ORDERED: POTASSIUM CHLORIDE 20 MEQ TABLET PO ONE (08:00)
[2020-08-20] MEDS: SENNA 8.6 MG TABLET PO SCH (09:04)
[2020-08-20] MEDS: DOCUSATE SODIUM 250 MG CAPSULE PO SCH (09:05)
[2020-08-20] MEDS: METOPROLOL TARTRATE 25 MG TABLET PO SCH (09:05)
[2020-08-20] MEDS: APIXABAN 5 MG TABLET PO SCH ×2 (09:06→20:36)
[2020-08-20] MEDS: MORPHINE ER 15 MG TABLET PO SCH ×2 (09:06→20:38)
[2020-08-20] MEDS: polyethylene glycoL 3350 17 GM PACKET PO SCH (09:11)
[2020-08-20] MEDS: POTASSIUM CHLOR 10 MEQ/100 ML 10 MEQ/100 ML BAG IV SCH ×4 (09:18→17:15)
--- NOTE | 2020-08-20 11:29 | XRAY Report ---
PROCEDURE: Chest 1 View X-Ray INDICATIONS: Shortness of breath TECHNIQUE: One view of the chest was acquired. COMPARISON: 08/17/2020, 04/30/2015, 01/01/2014. CT, 08/18/2020 FINDINGS: Surgical changes and devices: None. Lungs and pleura: Low lung volumes can be seen, causing a crowded appearance to the lung markings. D iffuse interstitial prominence is seen. No large pneumothorax or large pleural effusion can be seen. Mediastinum: The aorta is prominent and tortuous. The cardiac contours are within normal limits. Bones and chest wall: No suspicious bony lesions. The patient's known lytic lesions are not well se en on this plain film study. Age-appropriate degenerative changes are seen. Overlying soft tissues appear unremarkable. IMPRESSION: Normal lung volumes, with mild interstitial prominence. The interstitial prominence is likely related to artifact from the low lung volumes, although differential diagnosis would also include early pulm onary edema. Reviewed by: Rosalio Sorto MD on 08/20/2020 10:27 AM [facility] Approved by: Rosalio Sorto MD on 08/20/2020 10:27 AM [facility] Station ID: [id number]
[2020-08-20] MEDS ORDERED: SODIUM CHLORIDE 0.9% 500 ML IV ONE (14:17)
--- NOTE | 2020-08-20 15:50 | PROVIDER PROGRESS NOTE ---
Assessment/Plan - Problem List (1) Near syncope Assessment/Plan: This occurred when he was in a rapid rhythm, documented by EMS, felt to be SVT with aberrancy. His underlying EKG shows bundle branch block. There is been no further syncope here but he is less active than at home. His newly diagnosed A. fib with RVR is not yet controlled. Continue to adjust meds for fast heart rate . Check orthostatic vital signs, 2 sets have been checked so far, they are normal. (2) Paroxysmal atrial fibrillation with rapid ventricular response Assessment/Plan: This is been seen repeatedly seen today on telemetry. The heart rate goes as high as 160 but is non-sustained. There are long stretches of normal sinus rhythm. He has ruled out for an CA with normal troponins and normal LVEF on echo. His TSH is normal. Perhaps the pulmonary hypertension, found on Echo, is the cause of new Afib. His rate is not controlled when he goes into A. fib. Will increase his beta-umm dose. Continue the DOAC (3) New onset of congestive heart failure Assessment/Plan: He denies being SOB, he was "tired yesterday". He has diastolic LV heart failure which is very often seen with tachyarrhythmias. Chest x-ray shows CHF again today. He has mild pulmonary hypertension on Echo as well. Continue to adjust meds to control the paroxysmal A. fib with RVR. Continue with Lasix but due to SAUL and clinical dehydration, will change to oral. No lisinopril resumption yet due to the SAUL that is developing. (4) SAUL (acute kidney injury) Assessment/Plan: His BUN/creatinine have worsened since he has been admitted but he was prerenal at admission. We started using IV diuretics here. Will change to p.o. diuretics for more gentle diuresis. Avoid nephrotoxins. No lisinopril resumption because of this SAUL Follow BMP daily (5) Multiple myeloma Qualifiers: Multiple myeloma remission status: not in remission Qualified Code(s): C90.00 - Multiple myeloma not having achieved remission Assessment/Plan: Went to [facility] to update the patient medical condition to patient's oncologist per pt's request, pt had schedule on early next to see his oncologist, his oncologist hope pt can start his chemotherapy as soon as possible. Bone pain, from osteolytic lesions in the pelvis. Continue his pain meds, vitamins and supplements. His dexamethasone every 7 days, unknown when his last dose was PT has been started and there is recommendation for home health PT and OT, will order referral for Home Health (6) DVT (deep venous thrombosis) Assessment/Plan: A nonocclusive thrombus was found in the R calf. He also had CTA chest imaging that ruled out pulmonary embolism. With his newly diagnosed malignancy, he is hypercoagulable. He was started on Eliquis at [id number]-[id number] doses by the previous Provider. Will increase Eliquis to 10 mg bid for 7 days, then down to 5 mg bid. (7) HTN (hypertension) Qualifiers: Hypertension type: essential hypertension Qualified Code(s): I10 - Essential (primary) hypertension Assessment/Plan: Patient is on lisinopril and metoprolol for HTN, pre-admission. Here he needs higher beta-umm doses for better heart rate control and A. fib with RVR. The lisinopril is currently on hold, in order to allow an escalating dose of he art rate control meds (8) Anemia Assessment/Plan: This is probably related to his newly diagnosed multiple myeloma since he is not in positive fluid balance, since we have been using diuretics. Will check B12 and folate levels and iron stores and replace if low. Follow H/H daily. (9) Hypokalemia Assessment/Plan: Likely from bid iv Lasix dosing. Replace Follow BMP daily (10) Weakness Assessment/Plan: He could not stand, after havong syncope at home. Ordered PT/OT to evaluate and treat the pt and today he could walk. - Current Meds Current Meds: Current Medications Generic Name Dose Route Start Last Admin Trade Name Abdiq PRN Reason Stop Dose Admin Acetaminophen 650 mg 08/17/20 22:45 08/20/20 06:43 Tylenol PO 650 mg Q4HR PRN Administration Pain 1 to 4 Apixaban 5 mg 08/18/20 21:00 08/20/20 09:06 Eliquis PO 5 mg BID QUINTIN Administration Docusate Sodium 250 - 500 mg 08/18/20 11:00 08/20/20 09:05 Colace 250mg Capsule PO 250 mg DAILY QUINTIN Administration Furosemide 20 mg 08/19/20 18:00 08/20/20 13:23 Lasix Inj 20mg Vial IVP 20 mg BIDDIURETIC QUINTIN Administration Metoprolol Tartrate 5 mg 08/18/20 10:44 08/18/20 10:55 Lopressor Inj IVP 5 mg Q6H PRN Administration Tachycardia Metoprolol Tartrate 25 mg 08/18/20 12:00 08/20/20 09:05 Lopressor PO 25 mg BID QUINTIN Administration Morphine Sulfate 15 mg 08/18/20 10:00 08/20/20 09:06 PO 15 mg BID QUINTIN Administration Oxycodone HCl 10 mg 08/18/20 09:01 08/20/20 13:29 Roxicodone PO 10 mg Q6H PRN Administration PAIN Polyethylene Glycol 17 gm 08/18/20 11:00 08/20/20 09:11 Miralax PO 17 gm DAILY QUINTIN Administration Senna 8.6 - 17.2 mg 08/18/20 11:00 08/20/20 09:04 Senokot PO 8.6 mg DAILY QUINTIN Administration Sodium Chloride 10 ml 08/17/20 22:45 08/20/20 13:31 Normal Saline Flush 0.9% IVP 10 ml PRN PRN Administration NEEDED PER PROVIDER ORDERS Sodium Chloride 10 ml 08/18/20 01:00 08/20/20 09:12 Normal Saline Flush 0.9% IVP 10 ml 0100,0900,1700 QUINTIN Administration - Lab Result Fish Bone Diagrams: 08/20/20 05:00 08/20/20 05:00 - Additional Planning My Orders: My Active Orders 08/20/20 Home Health Referral [CONS] Routine Subjective - Subjective Patient Reports: Feeling Better, Other (Does not feel short of breath, does not feel as tired as yesterday, was able to do orthostatic vital sign positioning on his own and walk in the hallway. When he speaks, lips get stuck because tongue is dry and he also has a slight [place]oc[place] accent, he confirmed that he is [place]oc[place]) Objective Vital Signs: Vital Signs - 24 hr 08/19/20 08/19/20 08/19/20 15:59 21:00 21:17 Temperature 37 C 37 C Heart Rate [ 81 90 Brachial] Respiratory 16 16 Rate Blood Pressure 120/77 Blood Pressure [Left Brachial artery] Blood Pressure 121/67 120/77 [Right] O2 Saturation 91 L 96 08/20/20 08/20/20 08/20/20 00:46 04:48 08:51 Temperature 37.0 C 36.5 C 36.6 C Heart Rate [ 73 86 98 Brachial] Respiratory 20 18 17 Rate Blood Pressure Blood Pressure 109/55 L [Left Brachial artery] Blood Pressure 130/64 130/84 H [Right] O2 Saturation 94 93 92 08/20/20 08/20/20 08/20/20 09:05 11:19 13:35 Temperature 36.5 C Heart Rate [ 89 Brachial] Respiratory 20 18 Rate Blood Pressure 109/55 L Blood Pressure [Left Brachial artery] Blood Pressure 115/60 [Right] O2 Saturation 90 L 93 Oxygen O2 Source Room air I&O (Last 24 Hrs): Intake and Output Totals x24h 08/18/20 08/19/20 08/20/20 23:59 23:59 23:59 Intake Total 1571.498 209 1624.333 Output Total 2100 3175 2050 Balance -528.333 -2575 -491.667 General: Alert HEENT: Other (Dry oral mucosa) Neck: Supple, No JVD Neuro: Alert, Non Focal Cardiovascular: Regular rate, No murmurs Respiratory: No respiratory distress, Rales Abdomen: Normal bowel sounds, Soft Extremities: No edema - Results Results: Laboratory Results WBC 5.6 x10^3/uL (4.8-10.8) 08/20/20 05:00 RBC 2.87 10^6/uL (4.70-6.10) L 08/20/20 05:00 Hgb 9.7 g/dL (14.0-18.0) L 08/20/20 05:00 Hct 30.0 % (42.0-52.0) L 08/20/20 05:00 MCV 104.5 fL (80.0-94.0) H 08/20/20 05:00 MCH 33.8 pg (27.0-31.0) H 08/20/20 05:00 MCHC 32.3 g/dL (32.0-36.0) 08/20/20 05:00 RDW 14.6 % (12.0-15.0) 08/20/20 05:00 Plt Count 187 10^3/uL (130-450) 08/20/20 05:00 MPV 9.1 fL (7.4-11.4) 08/20/20 05:00 Reticulocyte % (Auto) 1.81 % (0.5-2.3) 08/19/20 05:25 Neut # (Auto) 2.6 10^3/uL (1.5-6.6) 08/20/20 05:00 Lymph # (Auto) 2.2 10^3/uL (1.5-3.5) 08/20/20 05:00 [place] # (Auto) 0.6 10^3/uL (0.0-1.0) 08/20/20 05:00 Eos # (Auto) 0.1 10^3/uL (0.0-0.7) 08/20/20 05:00 Baso # (Auto) 0.0 10^3/uL (0.0-0.1) 08/20/20 05:00 Absolute Nucleated RBC 0.00 x10^3/uL 08/20/20 05:00 Nucleated RBC % 0.0 /100WBC 08/20/20 05:00 Absolute Retic 0.047 10^6/uL (0.020-0.110) 08/19/20 05:25 PT 14.7 secs (9.9-12.6) H 08/18/20 04:20 INR 1.3 (0.8-1.2) H 08/18/20 04:20 D-Dimer > 1050.0 ng/mL (200.0-255.0) H 08/18/20 04:20 Sodium 139 mmol/L (135-145) 08/20/20 05:00 Potassium 3.1 mmol/L (3.5-5.0) L 08/20/20 05:00 Chloride 105 mmol/L (101-111) 08/20/20 05:00 Carbon Dioxide 26 mmol/L (21-32) 08/20/20 05:00 Anion Gap 8.0 (6-13) 08/20/20 05:00 BUN 36 mg/dL (6-20) H 08/20/20 05:00 Creatinine 1.3 mg/dL (0.6-1.2) H 08/20/20 05:00 Estimated GFR (MDRD) 55 (>89) L 08/20/20 05:00 Glucose 105 mg/dL (70-100) H 08/20/20 05:00 Calcium 11.2 mg/dL (8.5-10.3) H 08/20/20 05:00 Phosphorus 2.6 mg/dL (2.5-4.6) 08/17/20 21:20 Magnesium 2.0 mg/dL (1.7-2.8) 08/20/20 05:04 Iron 62 ug/dL (45-182) 08/19/20 05:25 TIBC 182 ug/dL (250-450) L 08/19/20 05:25 % Saturation 34 % (20-50) 08/19/20 05:25 Transferrin 130 mg/dL (180-329) L 08/19/20 05:25 Ferritin 188.0 ng/mL (23.9-336.2) 08/19/20 05:25 Total Bilirubin 0.9 mg/dL (0.2-1.0) 08/17/20 21:20 AST 22 IU/L (10-42) 08/17/20 21:20 ALT 29 IU/L (10-60) 08/17/20 21:20 Alkaline Phosphatase 69 IU/L (42-121) 08/17/20 21:20 Lactate Dehydrogenase 190 IU/L (91-225) 08/19/20 05:25 Troponin I High Sens 19.6 ng/L (2.3-19.7) 08/17/20 21:20 B-Natriuretic Peptide 255 pg/mL (5-100) H 08/19/20 05:25 Total Protein 10.7 g/dL (6.7-8.2) H 08/17/20 21:20 Albumin 2.3 g/dL (3.2-5.5) L 08/17/20 21:20 Globulin 8.4 g/dL (2.1-4.2) H 08/17/20 21:20 Albumin/Globulin Ratio 0.3 (1.0-2.2) L 08/17/20 21:20 Lipase 24 U/L (22-51) 08/17/20 21:20 Vitamin B12 335 pg/mL (180-914) 08/19/20 05:25 Urine Opiates Screen POSITIVE (NEGATIVE) H 08/19/20 07:58 Ur Oxycodone Screen POSITIVE (NEGATIVE) H 08/19/20 07:58 Urine Methadone Screen NEGATIVE (NEGATIVE) 08/19/20 07:58 Ur Propoxyphene Screen NEGATIVE (NEGATIVE) 08/19/20 07:58 Ur Barbiturates Screen NEGATIVE (NEGATIVE) 08/19/20 07:58 Ur Tricyclics Screen NEGATIVE (NEGATIVE) 08/19/20 07:58 Ur Phencyclidine Scrn NEGATIVE (NEGATIVE) 08/19/20 07:58 Ur Amphetamine Screen NEGATIVE (NEGATIVE) 08/19/20 07:58 U Methamphetamines Scrn NEGATIVE (NEGATIVE) 08/19/20 07:58 U Benzodiazepines Scrn NEGATIVE (NEGATIVE) 08/19/20 07:58 Urine Cocaine Screen NEGATIVE (NEGATIVE) 08/19/20 07:58 U Cannabinoids Screen NEGATIVE (NEGATIVE) 08/19/20 07:58 Ethyl Alcohol < 5.0 mg/dL 08/18/20 11:45 - Procedures Procedures: Procedures CLOSED ENDOSCOPIC BIOPSY OF LARGE INTESTINE (11/26/13) COLONOSCOPY (09/23/14) ENDO RECTUM POLYPECTOMY (11/26/13) INSPECTION OF LOWER INTESTINAL TRACT, ENDO (12/10/17) LAPAROSCOPIC RIGHT HEMICOLECTOMY (12/29/13) SUPPLEMENT ABDOMINAL WALL WITH SYNTH SUB, PERC ENDO APPROACH (02/28/18)
[2020-08-20] MEDS ORDERED: dexAMETHasone 4 MG TABLET PO SCH (16:00)
[2020-08-20] MEDS: METOPROLOL SUCCINATE 25 MG TABLET PO SCH (20:37)
[2020-08-21 05:12] LABS: BASOPHILS % (AUTO) 0.4 %; EOSINOPHILS # (AUTO) 0.1 10^3/uL (0.0-0.7); HGB - HEMOGLOBIN 9.9 g/dL (14.0-18.0); LYMPHOCYTES # (AUTO) 1.6 10^3/uL (1.5-3.5); MEAN CORPUSCULAR HEMOGLOBIN 33.7 pg (27.0-31.0); MEAN CORPUSCULAR VOLUME 105.1 fL (80.0-94.0); MEAN PLATELET VOLUME 8.9 fL (7.4-11.4); MONOCYTES # (AUTO) 0.5 10^3/uL (0.0-1.0); MONOCYTES % (AUTO) 11.4 %; NEUTROPHILS # (AUTO) 2.3 10^3/uL (1.5-6.6); PLT - PLATELET COUNT 206 10^3/uL (130-450); RED BLOOD COUNT 2.94 10^6/uL (4.70-6.10); RED CELL DISTRIBUTION WIDTH 14.4 % (12.0-15.0); WHITE BLOOD COUNT 4.7 x10^3/uL (4.8-10.8)
[2020-08-21 05:30] LABS: CALCIUM 11.4 mg/dL (8.5-10.3); CREATININE 1.4 mg/dL (0.6-1.2); MAGNESIUM 2.2 mg/dL (1.7-2.8)
[2020-08-21 05:52] LABS: FOLATE 21.02 ng/mL (5.90 - >24.8)
[2020-08-21] MEDS ORDERED: POTASSIUM CHLORIDE 20 MEQ TABLET PO ONE (07:17)
[2020-08-21] MEDS ORDERED: MULTIVITAMIN TABLET PO SCH (08:00)
[2020-08-21] MEDS: APIXABAN 5 MG TABLET PO SCH (08:48)
[2020-08-21] MEDS: METOPROLOL SUCCINATE 25 MG TABLET PO SCH (08:50)
[2020-08-21] MEDS: DOCUSATE SODIUM 250 MG CAPSULE PO SCH (08:53)
[2020-08-21] MEDS: MORPHINE ER 15 MG TABLET PO SCH (08:54)
[2020-08-21] MEDS: polyethylene glycoL 3350 17 GM PACKET PO SCH (08:55)
[2020-08-21] MEDS: SENNA 8.6 MG TABLET PO SCH (08:55)
[2020-08-21] MEDS: SODIUM CHLORIDE FLUSH 0.9% 10 ML SYRINGE IVP SCH (08:55)
[2020-08-21] MEDS ORDERED: FUROSEMIDE 40 MG TABLET PO SCH (09:00)
[2020-08-21] MEDS ORDERED: NIACIN ER 500 MG TABLET PO SCH (09:00)
[2020-08-21] MEDS ORDERED: OMEGA-3 ACID ETHYL ESTERS 1 GM CAPSULE PO SCH (09:00)
[2020-08-21] MEDS: oxyCODONE 5 MG TABLET PO PRN (10:47)
--- NOTE | 2020-08-21 13:41 | Discharge Plan ---
Discharge Plan Problem Reviewed?: Yes Disposition: Home, Self Care Condition: Fair Prescriptions: Apixaban [Eliquis] 5 mg PO BID #72 tablet Metoprolol Succinate [Toprol Xl] 25 mg PO BID #60 tablet Diet: Soft (Fluid limit should be 2.5 Liters per day) Activity Restrictions: Activity as Tolerated Shower Restrictions: Yes Driving Restrictions: No Assistance Devices: Wheelchair, Walker Weight Bearing: Full Weight Instruction Topics: Atrial Fibrillation Dc, Stroke Prevent Live W Atrial Fib Health Concerns: You were admitted with weakness after you had a fainting spell. We found you to have new atrial fibrillation which is paroxysmal (it comes and goes); when it is present it is very rapid. You also were found to have a partial clot in the right calf vein. You have been started on new medicines for the rapid A. fib and a new blood thinner. The blood thinner dose needs to be higher for the first 6 days, directions will be listed on the prescription bottle. New prescriptions were electronically sent to your [facility] pharmacy in [place]. Resume all your other prehospital medications EXCEPT STOP THE LISINOPRIL. A referral has been sent to [facility] agency to have in-house physical therapy, occupational therapy and if needed also a registered nurse and bath aide. Keep all upcoming appointments as they are already arranged. Plan of Treatment: As above. Care Goals: Improvement in symptoms and stabilization are the goals. Assessment: The patient understands and is agreeable with the plan. The was at bedside and heard the plan as well. Additional Instructions or Follow Up instructions: If you have new or worsening symptoms, call your PCP or Oncologist for advice, or come to the ER. Follow-Up Care: Home Health - RN, Home Health - PT, Home Health - OT No Smoking: If you smoke, Please STOP! Call for help. Follow-up with: Patricio Landry MD [Primary Care Provider] -
--- NOTE | 2020-08-21 13:59 | DISCHARGE SUMMARY ---
Discharge Summary Admit Date: 08/17/20 Discharge Date: 08/21/20 Code Status: Attempt Resuscitation Condition at Discharge: Fair Discharge Disposition: [facility] History of Present Illness: From the admission H&P of Dr. Effie Cardenas: 65-year-old white male who was recently diagnosed with multiple myeloma. He just had a confirmatory biopsy last week, and is to start therapy next week. He has diffuse joint pain, bone pain. Fatigue. Anorexia. He has been feeling increasing sylvia pain and inability to do ADLs in the last week. Denies chest pain, palpitations, but is having leg edema.He would lay down on the floor, elevate his legs, and go to sleep and the physician. When he would wake up, his legs would be skinny. But then when he stood up for too long the legs to get edematous again. When I press him about shortness of breath he states he really was not short of breath. He is just tired, and his legs and pelvis hurt so much from the bony erosions he cannot stand for too long. He has been spending many hours in a chair or laying down now for the last few months. He denies cough, fever, chills, chest congestion. The last time he stood up to do a project was in April. Today had sudden onset of palpitations, with lightheadedness and dizziness. When I explained to him that it was described that he almost passed out he denies it. He said at no time did he feel like he was losing his concentration or consciousness. He said that he just could not get off the toil et. No matter how hard he tried his legs would not support him. No chest pain. No diaphoresis. No jaw pain, left arm pain. And as such he came to the emergency room. Via EMS. When EMS arrived at the scene, he was in a wide complex tachycardia felt to be SVT. He said that he tried to get up off the toilet by himself, with him standing by, but all he did was lurch to one side, and not the toilet roll reyes off the wall. By the time they got him on the gurney he had already converted back to sinus on his own. In the emergency room he was evaluated by Dr. Pederson where heart rate was 86. Temperature was 37.1. Blood pressure 147/85. Respirations 12 and is 97% on room air. For the time is been in the emergency room he has been oxygenating adequately, and has been mildly hypertensive. His physical exam is crackles. But no respiratory distress. Chest x-ray does not show congestive heart failure. Potassium is 2.9. Troponin was normal. Calcium is elevated at 10.7. BNP is 166. EKG is unremarkable. The patient is now placed in observation for gentle diuresis, and Echocardiogram in the morning and telemetry. - HOSPITAL COURSE Hospital Course: (1) Syncope This occurred when he was in a rapid rhythm, documented by EMS, initially felt to be SVT with aberrancy; his underlying EKG shows bundle branch block. Here we saw paroxysmal A. fib with RVR on telemetry. Metoprolol, at slowly increasing doses, was used for rate control. We checked orthostatic vital signs, and they were normal. Troponin values were normal. A resting Echo showed normal LVEF but probable diastolic dysfunction present. (2) Paroxysmal atrial fibrillation with rapid ventricular response The heart rate went as high as 160 but was non-sustained and this alternated with normal sinus rhythm. He ruled out for an MS with normal troponins and had normal LVEF on Echo. His TSH was normal. He was discharged on new Toprol-XL 25 mg p.o. twice daily. He was also put on Eliquis for stroke prophylaxis. He nee ds outpatient work-up for CAD with a stress test, as a possible cause of this new A. fib. (3) Acute diastolic heart failure Chest x-ray showed CHF. He received iv Lasix for several days. The B-umm was increased (as above), since heart rate control is the most important thing and diastolic heart failure. He has mild pulmonary hypertension on Echo as well. On the day of discharge, he had an oximetry walk test and his O2 saturation remained 90 to 94% with exercise, thus he did not need an order for new home O2. (4) SAUL (acute kidney injury) His BUN/creatinine worsened after admission to 45/1.4, but he was prerenal at admission (29/1.2). We were using IV diuretics here. His Lisinopril was on hold while here and he was told not to restart it at home because of the elevated creatinine. He was on a fluid restriction of 1.8 L/day, this was liberalized at discharge, and he can take up to 2.5 L/day at home. No Lasix was ordered at dis charge (see #5). (5) Hypotension At mid-day of his planned discharge, his blood pressure dropped to 88 systolic. Discharge was postponed. He received a 500 cc saline bolus. His vital signs were rechecked: Blood pressure was 111 sitting with a heart rate of 90. Blood pressure standing was 112 systolic with a stable heart rate. He was discharged but advised not to start the twice daily Metoprolol till tomorrow, not on the first evening. His fluid restriction was also liberalized to 2.5 L/day in the discharge orders. (6) Multiple myeloma The patient is scheduled to see his Oncologist and have orientation at the [facility] in the upcoming week, for [id number] chemotherapy. He experiences bone pain, from osteolytic lesions in the pelvis. We continued his pain meds, vitamins and supplements. He started working with PT and OT and they advised further therapy and thus a referral to Home Health was sent for home PT and OT, plus home RN and bath aide if needed. (7) DVT (deep venous thrombosis) A nonocclusive thrombus was found in the R calf. He also had CTA chest imaging that ruled out pulmonary embolism. With his newly diagnosed malignancy, he is hypercoagulable. He was started on Eliquis at 10 mg bid for 7 days, then down to 5 mg bid. Due to having A. fib, he should stay on Eliquis lifelong, unless there is bleeding. (8) History of HTN Patient was on Lisinopril and Metoprolol for BP control pre-admission. Here he needed higher beta-umm doses for better heart rate control in his A. fib with RVR. The Lisinopril was on hold, in order to allow escalating dose of heart rate control meds. At discharge, no Lisinopril was needed for BP control. (9) Anemia This is probably related to his newly diagnosed multiple myeloma since it was not hemodilutional. There were no signs of blood loss, while being on the anticoagulant. (10) Hypokalemia This was likely from b.i.d. iv Lasix dosing. It was replaced. (11) Weakness He could not stand, after having syncope at home, reporting marked weakness. Here he did participate with PT & OT, which should continue (see #6). - ALLERGIES Allergies/Adverse Reactions: Allergies Allergy/AdvReac Type Severity Reaction Status Date / Time No Known Drug Allergies Allergy Verified 08/18/20 08:17 - MEDICATIONS Home Medications: Ambulatory Orders Medication Instructions Recorded Confirmed Flaxseed Oil 1,000 mg PO DAILY 12/24/17 08/17/20 Glucosamine HCl 3 tab PO DAILY 12/24/17 08/17/20 Multivitamin [Multiple Vitamins] 2 each PO DAILY 12/24/17 08/17/20 Niacin 500 mg PO DAILY 12/24/17 08/17/20 Ferris-3/Dha/Epa/Fish Oil [Fish Oil 1,360 mg PO DAILY 12/24/17 08/17/20 Conc 1,000 mg Softgel] Acyclovir [Zovirax] 400 mg PO BID 08/12/20 08/17/20 Morphine Sulfate [Ms Contin] 15 mg ORAL BID 08/12/20 08/17/20 Ondansetron [Ondansetron Odt] 8 mg PO Q8HR PRN 08/12/20 08/17/20 dexAMETHasone [Dexamethasone] 40 mg PO Q7D 08/12/20 08/19/20 oxyCODONE [Roxicodone] 10 mg PO Q4-6H PRN 08/12/20 08/18/20 Apixaban [Eliquis] 5 mg PO BID #72 tablet 08/21/20 Metoprolol Succinate [Toprol Xl] 25 mg PO BID #60 tablet 08/21/20 - PHYSICAL EXAM AT DISCHARGE General Appearance: positive: No acute distress, Alert Eyes Bilateral: positive: Normal inspection, EOMI ENT: positive: ENT inspection nml, No signs of dehydration Neck: positive: Nml inspection, No JVD Respiratory: positive: No respiratory distress, Breath sounds nml Cardiovascular: positive: Regular rate & rhythm, No murmur Abdomen: positive: Non-tender, No distention Skin: positive: Warm, Dry Extremities: positive: Non-tender, No pedal edema Neurologic/Psychiatric: positive: Oriented x3 (Non-focal) - LABS Result Diagrams: 08/21/20 05:00 08/21/20 05:00 - DIAGNOSTIC IMAGING Diagnostic Imaging Results: Final report reviewed - FOLLOW UP Follow Up: See [facility] in 2 days. See Oncologist as scheduled. - TIME SPENT Time Spent in Discharge (Minutes): 60
[2020-08-21] MEDS: ACETAMINOPHEN 325 MG TABLET PO PRN (14:24)
[2020-08-21] MEDS ORDERED: SODIUM CHLORIDE 0.9% 500 ML IV ONE ×2 (14:40→14:53)
[2020-08-21] MEDS: SODIUM CHLORIDE FLUSH 0.9% 10 ML SYRINGE IVP PRN (14:54)
[2020-08-21 16:56] VITALS: BP 112/64
== END 2020-08-21 16:10 | disposition home health service (06) | DRG 308 ==
LOC: EDUNIT# → ED 20:58 → MS3 22:45 → OBSVTOIN 08-18 11:12
PROVIDERS: ADMIT Nurse Practitioner Gerontology; ATTEND Internal Medicine
DX: I50.9 Heart failure, unspecified (principal); I47.1 Supraventricular tachycardia; I48.0 Paroxysmal atrial fibrillation; I50.31 Acute diastolic (congestive) heart failure; I10 Essential (primary) hypertension; I45.10 Unspecified right bundle-branch block; M89.8X9 Other specified disorders of bone, unspecified site; N17.9 Acute kidney failure, unspecified; C90.00 Multiple myeloma not having achieved remission; I82.4Z1 Acute embolism and thrombosis of unspecified deep veins of right distal lower extremity; I11.0 Hypertensive heart disease with heart failure; I95.9 Hypotension, unspecified; D63.0 Anemia in neoplastic disease; E87.6 Hypokalemia; R53.1 Weakness; G89.3 Neoplasm related pain (acute) (chronic); Z87.891 Personal history of nicotine dependence; K59.00 Constipation, unspecified; I27.20 Pulmonary hypertension, unspecified
CPT/HCPCS: 36415; 71045; 71275; 80048; 80053; 82607; 82728; 82746; 83540; 83615; 83690; 83735; 83880; 84100; 84132; 84466; 84484; 85014; 85018; 85025; 85045; 85379; 85610; 93005; 93306; 93970; 96365; 96366; 96372; 96375; 97116; 97162; 97165; 97530; 97535; 99284; 99285; A9270; G0378; J1170; J1650; Q9967; 80306; 80320; 82272

== ENCOUNTER 2020-10-18 08:00 | Outpatient (CLI) | payer MEDICARE, OTHER ==
--- NOTE | 2020-10-18 14:50 | XRAY Report ---
PROCEDURE: Foot 3 View RT INDICATIONS: FOOT PAIN, RIGHT TECHNIQUE: 3 views of the foot were acquired. COMPARISON: None FINDINGS: Bones: No fractures or dislocations. No suspicious bony lesions. Mild periarticular osteophyte for mation at the first metatarsophalangeal joint. Calcaneal spurring. Periarticular osteophyte formation at the tibiotalar and talonavicular joint. Soft tissues: No tibiotalar joint effusion. Achilles tendon appears normal. IMPRESSION: 1. Osteoarthritis. 2. No acute fracture. No osseous lesion. If symptoms and/or clinical suspicion for pathology continue , further assessment with repeat plain films, or advanced imaging (e.g., CT, MRI, or bone scan) is re commended for further assessment. Reviewed by: Byron Welch MD on 10/18/2020 2:49 PM PST Approved by: Byron Welch MD on 10/18/2020 2:49 PM PST Station ID: [id number]
== END 2020-10-18 23:59 ==
LOC: DI.S 08:00
PROVIDERS: ATTEND Physician Assistant
DX: M19.071 Primary osteoarthritis, right ankle and foot (principal); M79.671 Pain in right foot
CPT/HCPCS: 36415; 84550

== ENCOUNTER 2020-10-18 08:00 | Outpatient (CLI) | payer MEDICARE, OTHER | END 2020-10-18 08:01 | disposition home or self-care (01) | LOC: LAB.S 08:00 | PROVIDERS: ATTEND Physician Assistant | DX: M79.671 Pain in right foot (principal) | CPT/HCPCS: 36415; 84550 ==

== ENCOUNTER 2020-10-31 09:32 | Outpatient (CLI) | payer MEDICARE, OTHER | END 2020-10-31 09:33 | disposition home or self-care (01) | LOC: LAB.S 09:32 | PROVIDERS: ATTEND Internal Medicine | DX: Z53.9 Procedure and treatment not carried out, unspecified reason (principal) ==

== ENCOUNTER 2020-12-15 12:07 | Outpatient (CLI) | payer MEDICARE, OTHER ==
[2020-12-15] MEDS ORDERED: GADOBUTROL 10 MMOL/10 ML VIAL ONE (14:22)
[2020-12-15] MEDS ORDERED: GADOBUTROL 10 MMOL/10 ML VIAL IVP ONE (20:33)
--- NOTE | 2020-12-21 12:36 | MRI Report ---
PROCEDURE: Orbits W/WO INDICATIONS: MULTIPLE MYELOMA CONTRAST: IV CONTRAST: Gadavist ml: 8 TECHNIQUE: Noncontrast sagittal T1 spin echo, axial FLAIR, axial gradient echo, axial diffusion and ADC acquired through the brain. Coronal STIR, thin-slice axial T1 spin echo through the orbits. After the admin istration of contrast, thin slice axial and coronal T1 spin echo with fat saturation through the orbi ts, axial T1 spin echo with fat saturation through the brain. COMPARISON: None. FINDINGS: Image quality: Excellent. Orbits: Periorbital soft tissues are unremarkable. Bony orbital structures demonstrating normal signa l and enhancement with no evidence of pathologic lesion. Symmetric appearance of both globes. Extra o cular muscles and intraconal structures are normal. CSF spaces: Normal ventricular caliber and position. The basilar cisterns. There is probably a small arachnoid cyst in the right middle cranial fossa anterior to the right temporal lobe. Brain: Partially visualized intracranial compartment reveals no abnormal brain parenchymal signal or enhancement. Mild global volume loss. Skull and face: Enhancing lesion in the left frontal calvarium is partially visualized, consistent wi th a lytic multiple myeloma lesion. No additional abnormal osseous enhancement or signal in the parti ally visualized calvarium or partially visualized bones of the mid face. Sinuses: Clear paranasal sinuses and mastoid air cells. IMPRESSION: Enhancing left frontal calvarial lesion consistent with a lytic focus related to multiple myeloma. Otherwise unremarkable MRI of the orbits. Reviewed by: Binh Peñaloza MD on 12/21/2020 12:35 PM PST Approved by: Binh Peñaloza MD on 12/21/2020 12:35 PM PST Station ID: [id number]
--- NOTE | 2020-12-21 12:40 | MRI Report ---
PROCEDURE: Neck Soft Tissue W/WO INDICATIONS: MULTIPLE MYELOMA CONTRAST: IV CONTRAST: Gadavist ml: 8 TECHNIQUE: Sagittal/axial/coronal T1 spin echo and STIR. After the administration of contrast, axial/coronal/sa gittal T1 fast spin echo with fat saturation through the neck. COMPARISON: PET/CT 08/10/2020 FINDINGS: Image quality: Excellent. Lymph nodes: No enlarged nodes are seen throughout the neck. Vessels: Visualized vasculature appears normal, with rebeca flow voids and enhancement. Neck spaces: The oropharynx, nasopharynx and pharynx are unremarkable, without mucosal lesions seen. Vocal cords, false vocal cords, pyriform sinuses, epiglottis, vallecula, and tongue base all appear normal. Extramucosal spaces of the neck also appear unremarkable. Glands: The parotid and submandibular glands appear normal. The thyroid is normal in size. Miscellaneous: Visualized brain and orbits appear normal. Lung apices appear clear. Superficial so ft tissues appear normal. Visualized sinuses and mastoids appear clear. Bones: Enhancing focus of decreased T1 marrow signal intensity within the central and inferior C4 maddie tebral body (series 13 on image 18 and series 2401 image 25). This measures approximately 1.4 x 1.7 c m maximum axial dimension and 1 cm in maximum craniocaudal dimension. This could represent acute enha ncing degenerative changes although a focus of multiple myeloma is favored given the presence of pippa tional in the axial skeleton. No additional abnormal enhancement cervical spine. IMPRESSION: Enhancing focus of decreased T1 marrow signal intensity in the inferior C4 vertebral body, consistent with a focus of multiple myeloma. This corresponds in position and appearance to the lesion seen on the comparison PET/CT. Reviewed by: Binh Peñaloza MD on 12/21/2020 12:39 PM PST Approved by: Binh Peñaloza MD on 12/21/2020 12:39 PM PST Station ID: [id number]
== END 2020-12-15 12:08 | disposition home or self-care (01) ==
LOC: DI 12:07
PROVIDERS: ATTEND Otolaryngology Otolaryngology/Facial Plastic Surgery
DX: C90.00 Multiple myeloma not having achieved remission (principal)
CPT/HCPCS: 70543; A9585

== ENCOUNTER 2020-12-16 11:57 | Outpatient (CLI) | payer MEDICARE, OTHER | END 2020-12-16 11:58 | disposition home or self-care (01) | LOC: DI 11:57 | PROVIDERS: ATTEND Internal Medicine Hematology & Oncology | DX: C90.00 Multiple myeloma not having achieved remission (principal) | CPT/HCPCS: 93306 ==

== ENCOUNTER 2021-03-22 13:37 | Outpatient (CLI) | payer MEDICARE, OTHER ==
--- NOTE | 2021-03-22 17:14 | XRAY Report ---
PROCEDURE: Chest 2 View X-Ray INDICATIONS: COUGH TECHNIQUE: 2 view(s) of the chest. COMPARISON: 08/17/2020 and 08/19/2020. FINDINGS: Surgical changes and devices: None. Lungs and pleura: No pleural effusions or pneumothorax. Focal opacity noted in the posterior aspect left lung base compatible with pneumonia. Mediastinum: Mediastinal contours are normal. Heart size is normal. Bones and chest wall: No suspicious bony abnormalities. Chronic appearing left rib fractures. Right rib fractures of indeterminate age. T5, T9, T10 and T11 compression fractures of indeterminate age. S oft tissues appear unremarkable. IMPRESSION: Left lower lobe pneumonia. Right seventh, eighth and ninth rib fractures of indeterminate age. T5, T9, T10 and T11 compression fractures of indeterminate age. Reviewed by: Abby Rock MD, PhD on 03/22/2021 5:13 PM PDT Approved by: Abby Rock MD, PhD on 03/22/2021 5:13 PM PDT Station ID: [id number]
== END 2021-03-22 13:38 | disposition home or self-care (01) ==
LOC: DI.S 13:37
PROVIDERS: ATTEND Internal Medicine Hematology & Oncology
DX: J18.9 Pneumonia, unspecified organism (principal); S22.41XA Multiple fractures of ribs, right side, initial encounter for closed fracture; S22.050A Wedge compression fracture of T5-T6 vertebra, initial encounter for closed fracture; S22.070A Wedge compression fracture of T9-T10 vertebra, initial encounter for closed fracture; S22.080A Wedge compression fracture of T11-T12 vertebra, initial encounter for closed fracture

== ENCOUNTER 2021-06-06 08:45 | Outpatient (CLI) | payer MEDICARE, OTHER | END 2021-06-06 08:46 | disposition home or self-care (01) | LOC: DI 08:45 | PROVIDERS: ATTEND Internal Medicine Hematology & Oncology | DX: C90.00 Multiple myeloma not having achieved remission (principal); Z79.899 Other long term (current) drug therapy | CPT/HCPCS: 93306 ==

== ENCOUNTER 2022-12-20 09:16 | Outpatient (CLI) | payer MEDICARE, OTHER ==
[2022-12-20 14:54] LABS: CHOL/HDL RATIO 2.1 (<5.0); CHOLESTEROL 80 mg/dL; HDL CHOLESTEROL 39 mg/dL; TRIGLYCERIDES 30 mg/dL
== END 2022-12-20 09:17 | disposition home or self-care (01) ==
LOC: LAB.S 09:16
PROVIDERS: ATTEND Internal Medicine Cardiovascular Disease
DX: E78.49 Other hyperlipidemia (principal)
CPT/HCPCS: 36415; 80061; 83721

== ENCOUNTER 2023-05-22 13:25 | Outpatient (CLI) | payer MEDICARE, OTHER | END 2023-05-22 13:26 | disposition home or self-care (01) | LOC: LAB.S 13:25 | PROVIDERS: ATTEND Registered Nurse | DX: C90.00 Multiple myeloma not having achieved remission (principal) | CPT/HCPCS: 81599; 86317 ==

== ENCOUNTER 2023-08-29 11:23 | Outpatient (CLI) | payer MEDICARE, OTHER | END 2023-08-29 11:24 | disposition home or self-care (01) | LOC: LAB.S 11:23 | PROVIDERS: ATTEND Registered Nurse | DX: D84.9 Immunodeficiency, unspecified (principal) | CPT/HCPCS: 81599; 86317 ==

== ENCOUNTER 2024-01-22 11:33 | Outpatient (CLI) | payer MEDICARE, OTHER | END 2024-01-22 11:34 | disposition home or self-care (01) | LOC: LAB.S 11:33 | PROVIDERS: ATTEND Registered Nurse | DX: D84.9 Immunodeficiency, unspecified (principal) | CPT/HCPCS: 81599 ==